=== PATIENT | female | born 1960 | race Caucasian/White ===

== ENCOUNTER 2016-06-19 09:00 | Inpatient (IN) ==
[2016-06-19] MEDS ORDERED: DUONEB (A & A) INH ONE (09:05)
[2016-06-19 09:17] LABS: BE 3.9 mmoll (-3.0-3.0); BLOOD TYPE ARTERIAL; DRAW SITE R RADIAL; METHB 1.2 % (0.0-1.5); O2(CT) 18.9 mL/dL (15.0-23.0); PCO2(98.6) 38 mmHg (35-45); PO2(98.6) 51 mmHg (60-100); SAMPLE BLOOD; SAO2 91.8 % (95.0-100.0); THB 15.5 g/dL (11.5-17.4); pH(98.6) 7.47 (7.35-7.45)
[2016-06-19 09:25] LABS: ALLEN TEST YES; MODALITY ROOM AIR
--- NOTE | 2016-06-19 09:50 | PROVIDER DOCUMENTATION ---
HPI-Respiratory General - General Chief Complaint: Shortness of Breath Stated Complaint: SOB Time Seen by Provider: 06/19/16 09:45 Source: patient Allergies/Adverse Reactions: Patient Allergies Allergy/AdvReac Type Severity Reaction Status Date / Time Penicillins Allergy Unknown Verified 04/15/15 12:21 Home Medications: Home Medication List Medication Instructions Recorded Confirmed Last Taken Type Albuterol Sulfate [Proventil Hfa] 6.7 gm IH Q4H PRN #1 hfa.aer.ad 03/28/1404/1503/26/15 07:00 Rx Bumetanide [Bumex] 1 mg PO BID 03/28/14 04/15/15 03/26/15 07:00 History Oxycodone HCl [Roxicodone] 30 mg Q6HR 03/28/14 04/15/15 03/26/15 07:00 History Pregabalin [Lyrica] 75 mg BID 03/28/14 04/15/15 03/26/15 07:00 History Tapentadol HCl [Nucynta] 100 mg BID 03/28/14 04/15/15 03/26/15 07:00 History Tizanidine [Zanaflex] 8 mg PO TID 03/28/14 04/15/15 03/26/15 07:00 History Albuterol Sulfate [Albuterol 8.5 gm IH Q4-6H PRN PRN #1 03/26/15 04/15/15 Unknown Rx Sulfate Hfa] hfa.aer.ad Alprazolam [Xanax] 1 mg PO TID 03/26/15 04/15/15 03/26/15 07:00 History Benzonatate [Tessalon] 100 mg PO TID PRN PRN #20 capsule 03/26/15 04/15/15 Unknown Rx Albuterol Sulfate Inhaler 2 puff INH Q6H PRN PRN #1 inhaler 04/15/15 Unknown Rx [Ventolin Hfa] Guaifenesin/Codeine Phosphate 10 ml PO Q4HR PRN #120 liquid 04/15/15 Unknown Rx [Cheratussin AC Syrup] Levofloxacin [Levaquin] 750 mg PO DAILY #7 tablet 04/15/15 Unknown Rx Prednisone 20 mg PO BID #12 tablet 04/15/15 Unknown Rx Albuterol Sulfate Inhaler 2 puff INH Q6H PRN PRN #1 inhaler 04/02/16 Unknown Rx [Ventolin Hfa] Azithromycin [Zithromax Z-Patrice] 250 mg PO DIRECTED #1 pkg 04/02/16 Unknown Rx Benzonatate [Tessalon] 100 mg PO TID #30 capsule 04/02/16 Unknown Rx Doxycycline Monohydrate 100 mg PO BID #20 tablet 04/02/16 Unknown Rx Prednisone 20 mg PO BID #10 tablet 04/02/16 Unknown Rx - History of Present Illness-Resp Nature of Presenting Problem: pt is a 55 y/o f that presents with 24 hours of shortness of breath and cough. denies fever/chills,chest pain, or swelling. history of copd and still smokes Quality of Pain: reports: tightness Severity in ED: reports: moderate Onset/Duration: reports: gradual, 24 hours ago Timing: reports: still present, constant Context: reports: multiple patients with similar complaints. denies: recent URI Cough Quality/Degree: reports: moderate, dry cough Episode Frequency: frequent episodes Current Respiratory Medication Therapy: Initiated see nurses note Modifying Factors: worse with: exertion, coughing Associated Symptoms: reports: cough, shortness of breath, short of breath, wheezing. denies: fever/chills, flu-like symptoms, nasal congestion, nasal drainage Similar Symptoms Previously?: Yes Recently seen or treated by another doctor?: No Review of Systems - Adult - REVIEW OF SYSTEMS - ADULT Constitutional: denies: chills, fever Eyes: reports: no symptoms reported Ears, Nose, Mouth & Throat: denies: ear pain, sinus problem, throat pain Cardiovascular: denies: chest pain, palpitations Respiratory: reports: cough, shortness of breath, wheezing Gastrointestinal: reports: no symptoms reported Genitourinary: reports: no symptoms reported Musculoskeletal: reports: no symptoms reported Integumentary: reports: no symptoms reported Neurological: reports: no symptoms reported Psychiatric: reports: no symptoms reported Endocrine: reports: no symptoms reported Hematologic/Lymphatic: reports: no symptoms reported Allergic/Immunologic: reports: no symptoms reported All Other Systems: Reviewed and Negative Past History - Adult - PAST MEDICAL HISTORY-ADULT Review of Records: reports: Old Records Reviewed, Nursing Assessment Review, Medications Reviewed Cardiovascular: reports: HTN, hyperlipidemia Respiratory: reports: COPD Musculoskeletal: reports: chronic pain (back) - PRIOR SURGERIES/PROCEDURES Surgical/Procedure History: reports: tonsillectomy - IMMUNIZATION STATUS Childhood Immunizations: See Nurse Assessment Flu Vaccine: See Nurse Assessment - FAMILY HISTORY Family History: reviewed, not pertinent - SOCIAL HISTORY Smoking: cigarettes, greater than 1 pack/day Living Situation: family Physical Exam-General - PHYSICAL EXAM-ADULT Initial Vital Signs Reviewed: Yes - CONSTITUTIONAL General Appearance: alert, mild distress, moderate distress, obese - EYES Eyes: PERRL/EOMI, pink conjunctivae - HEAD, EARS, NOSE, MOUTH & THROAT HENMT: normocephalic/atraumatic, moist mucous membranes, normal ENT inspection - NECK Neck: full range of motion, normal inspection - RESPIRATORY Respiratory: no respiratory distress, no accessory muscle use, wheezing - CARDIOVASCULAR Cardiovascular: regular rate, rhythm, no edema, no murmur - GASTROINTESTINAL (ABDOMEN) Abdominal Exam: normal bowel sounds, non tender, soft - MUSCULOSKELETAL Extremity: normal range of motion, normal inspection, no pedal edema, no calf tenderness, normal capillary refill - SKIN Integumentary: normal color, warm/dry - NEUROLOGIC Neurologic: grossly normal, no motor/sensory deficits - PSYCHIATRIC Psych/Mental Status: normal mood/affect, normal thought content, normal thought process, oriented x 3 Progress - PLAN OF CARE/RESULTS Progress/Plan/Lab Results: Vital Signs - 8 hr 06/19/16 09:03 06/19/16 09:05 06/19/16 10:30 Temperature 98.3 F 97.9 F Pulse Rate 91 H 97 H 87 Respiratory Rate 26 H 16 26 H Blood Pressure 158/86 160/70 O2 Sat by Pulse Oximetry 92 L 97 87 L Laboratory Results - last 24 hr 06/19/16 06/19/16 06/19/16 09:00 09:47 09:47 WBC 5.91 RBC 4.80 Hgb 14.3 Hct 43.4 MCV 90.4 MCH 29.8 MCHC 32.9 L RDW Std Deviation 14.3 Plt Count 143 MPV 10.3 Immature Gran % (Auto) 0.2 Neut % (Auto) 75.6 H Lymph % (Auto) 15.7 L [place] % (Auto) 8.1 Eos % (Auto) 0.2 Baso % (Auto) 0.2 Immature Gran # (Auto) 0.01 Neut # (Auto) 4.47 Lymph # (Auto) 0.93 L [place] # (Auto) 0.48 Eos # (Auto) 0.01 Baso # (Auto) 0.01 Specimen Type ARTERIAL Sample Site R RADIAL pH 7.47 H pCO2 38 pO2 51 L HCO3 27.6 H Base Excess 3.9 H Oxyhemoglobin 87.0 L* ABG O2 Sat (Calculated) 18.9 ABG O2 Saturation 91.8 L ABG Carboxyhemoglobin 4.00 H ABG Methemoglobin 1.2 Mario Test YES A-a O2 Difference 51.0 Total Hemoglobin 15.5 Lactate 1.10 Blood Gas Modality ROOM AIR FiO2 % 21.0 Sodium 143 Potassium 3.0 L Chloride 103 Carbon Dioxide 24 L Anion Gap 16 BUN 6 L Creatinine 0.5 Estimated GFR/1.73 m2 > 60 BUN/Creatinine Ratio 12 Glucose 136 H Calculated Osmolality 285 Calcium 8.9 Total Bilirubin 0.40 AST 15 ALT 12 Alkaline Phosphatase 101 Total Protein 6.7 Albumin 3.7 Globulin 3.0 Albumin/Globulin Ratio 1.0 Orders Category Date Time Status Saline Loc DIRECTED Care 06/19/16 09:05 Active CHEST-2 VIEWS [RAD] Stat Exams 06/19/16 09:05 Taken ABG [RESP] Routine Lab 06/19/16 09:00 Completed BLOOD CULTURE [BLDCUL] Stat Lab 06/19/16 09:32 Ordered CBC WITH DIFF [HEME] Stat Lab 06/19/16 09:47 Completed CMP [COMPREHENSIVE METABOLIC PANEL] [CHEM] Stat Lab 06/19/16 09:47 Completed Albuterol 2.5MG/Ipratrop 0.5MG [Duoneb (A & A)] Med 06/19/16 09:05 Discontinued 3 ml INH NOW ONE Aerosol Treatments Routine Oth 06/19/16 09:05 Completed Aerosol Treatments Stat Oth 06/19/16 09:05 Completed Aerosol Treatments Stat Oth 06/19/16 09:05 Completed Pulse Oximetry Stat Oth 06/19/16 09:05 Completed Result Diagrams: 06/19/16 09:47 06/19/16 09:47 - XRAY 1 XRAY Study: Chest Impression: Abnormal XRAY Interpretation: stable fibrosis, nad - CONSULTS/PCP/HOSPITALIST Notification #1 *Consult/PCP/Hospitalist*: Time Discussed: 10:35 Consult Disposition: Admit Departure - Departure Time of Disposition Decision: 10:43 DIAGNOSIS: COPD with exacerbation, Shortness of breath Disposition: ADMITTED INPATIENT 09 Certified Medical Emergency: Emergent Condition: Stable Referrals and Follow-Ups: Jai Cee MD [Primary Care Provider] -
[2016-06-19 09:59] LABS: MANUAL DIFF NEEDED? NO
[2016-06-19 10:00] LABS: BASO% 0.2 % (0.0-0.8); EOS# 0.01 X1000 (0.0-0.7); EOS% 0.2 % (0.0-10.0); HEMATOCRIT 43.4 % (37.0-47.0); HEMOGLOBIN 14.3 g/dL (12.0-16.0); IMM GRAN# 0.01 X1000 (0.0-0.04); IMM GRAN% 0.2 % (0.0-0.5); LYMPH# 0.93 X1000 (1.2-3.4); LYMPH% 15.7 % (20.5-51.1); MCH 29.8 PG (27-31); MCHC 32.9 g/dL (33-37); MCV 90.4 FL (81-99); MONO# 0.48 X1000 (0.11-0.59); MONO% 8.1 % (1.7-9.3); MPV 10.3 FL (7.4-10.4); NEUT% 75.6 % (42.2-75.2); PLT 143 X1000 (130-400)
[2016-06-19 10:20] LABS: AGAP 16; ALBUMIN 3.7 g/dL (3.5-5.0); ALKALINE PHOSPHATASE 101 U/L (32-104); BUN 6 mg/dL (8-22); CALCIUM 8.9 mg/dL (8.8-10.2); CHLORIDE 103 mmol/L (98-107); COSMO 285; GOT 15 U/L (10-30); GPT 12 U/L (10-36); SODIUM 143 mmol/L (136-145); TCO2 24 mmol/L (25-35); TOTAL PROTEIN 6.7 g/dL (6.3-8.3)
--- NOTE | 2016-06-19 10:48 | Diag Imaging Result Document ---
PROCEDURE NAME: CHEST-2 VIEWS - 06/19/2016 CHEST, TWO VIEWS: INDICATION: Shortness of breath. COMPARISON: 04/02/2016, 04/15/2015. FINDINGS: The heart size is within normal limits and stable. There is stable bilateral interstitial infiltrate, consistent with fibrosis. No acute infiltrate, effusion, or pneumothorax appreciated. IMPRESSION: Stable parenchymal fibrosis.
[2016-06-19] MEDS ORDERED: LEVAQUIN 750 MG/D5W 750 MG/150 ML IVPB IV ONE (10:56)
[2016-06-19] MEDS ORDERED: DUONEB (A & A) INH SCH (14:38)
[2016-06-19] MEDS ORDERED: DUONEB (A & A) INH PRN (14:38)
[2016-06-19] MEDS ORDERED: ZOFRAN IV PRN (14:38)
[2016-06-19] MEDS: DUONEB (A & A) INH SCH ×3 (14:53→22:56)
[2016-06-19] MEDS ORDERED: KLOR-CON PO ONE (14:59)
--- NOTE | 2016-06-19 15:21 | HISTORY AND PHYSICAL ---
PRIMARY CARE PHYSICIAN: Dr. Jai Vance. CHIEF COMPLAINT: Shortness of breath. HISTORY OF PRESENT ILLNESS: This is a 55-year-old female, who presented to the emergency room complaining of increasing wheezing with chest congestion over the last 2 days. She denies any fever, chest pain, palpitations. She does note that her grandson lives with her and he has had upper respiratory infection over the past week. Of note, she does continue to smoke half a pack a day. She does report an increase in shortness of breath with movement, with a slight increase on sitting still. She reports a dry cough. Chest x-ray in the emergency room revealed no infiltrate, effusion or pneumothorax. On arrival to the ER her oxygen saturation did dip to 87 on 3 L nasal cannula. She was given a DuoNeb treatment of course and had supplemental oxygen. She is being admitted for further evaluation and treatment. PAST MEDICAL HISTORY: 1. Chronic obstructive pulmonary disease with chronic bronchitis. 2. Hypertension. 3. Chronic back pain. 4. Hyperlipidemia. PAST SURGICAL HISTORY: Tonsillectomy, carpal tunnel bilateral, pyloric stenosis repair. SOCIAL HISTORY: She does live with family members. She smokes half a pack a day. She denies alcohol or illicit drug use. ALLERGIES: Penicillin which has unknown reaction. HOME MEDICATIONS: 1. Motrin 800 mg twice a day. 2. Xanax 1 mg t.i.d. p.r.n. 3. Bumex 1 mg b.i.d. p.r.n. 4. Roxicodone 30 t.i.d. 5. Lyrica 75 mg b.i.d. 6. Zanaflex 8 mg t.i.d. REVIEW OF SYSTEMS: A 14 point review of systems is discussed with patient with pertinent positives stated in the HPI. She denied chest pain, palpitations, syncope, dizziness, productive cough, PND, orthopnea, nausea, vomiting, diarrhea, constipation, black or bloody vomitus, black or bloody stools, hematuria, dysuria, frequency, urgency. PHYSICAL EXAMINATION: GENERAL: This is a 55-year-old female, who is sitting up in the bed with no distress. VITAL SIGNS: Blood pressure is 178/67 with a heart rate of 93, respirations are 21 with a temp of 98.2 degrees and oxygen saturation of 96% to 97% on 4 L nasal cannula. HEENT: Head is normocephalic, atraumatic. Pupils equal, round, react to light. EOM's are intact. Sclerae are anicteric. Mucous membranes are moist. NECK: Supple. Trachea midline. CARDIOVASCULAR: Regular rate and rhythm. S1, S2 appreciated. PULMONARY: Breath sounds with wheezing scattered throughout. Prolonged expiration. No increased work of breathing noted. She does have symmetrical chest rise and fall. GASTROINTESTINAL: Abdomen is soft, nontender, nondistended with bowel sounds in all 4 quadrants. BACK: No CVAT. No spine tenderness. MUSCULOSKELETAL: Good range of motion of joints. NEUROLOGIC: She is alert and oriented x3. EXTREMITIES: No clubbing, cyanosis, or edema. Calves are nontender. Pulses are palpable x4. DIAGNOSTICS: WBC is 5.9 with hemoglobin 14.3, hematocrit 43.4, platelets of 143. Sodium is 143, potassium 3. BUN 6, creatinine 0.5 with a glucose of 136. ABGs: A pH of 7.47 with a PCO2 of 38, PO2 of 51, bicarbonate of 27.6 (this is on room air). Chest x-ray as stated above. ASSESSMENT AND PLAN: 1. Chronic obstructive pulmonary disease, acute on chronic exacerbation. 2. Hypoxemia. 3. Shortness of breath. 4. Hypokalemia. 5. Hypertension. 6. Chronic back pain. 7. Tobacco use and abuse. She will be admitted to the hospital. Placed on telemetry. We will give supplemental oxygen. DuoNebs q. 4 hours and q. 2 p.r.n. Steroids to taper. We will identify her home medications and continue as appropriate. Blood cultures were drawn in the emergency room. We will continue with Levaquin. We will continue to watch for sensitivities and, if needed, antibiotics may be changed appropriately according to these results. We will trend electrolytes and replete as appropriate. Further treatments pending hospital course. Dictated by ASTON Jiménez for Yan Weinstein MD cc: ASTON Jiménez MD
[2016-06-19] MEDS: NS 1,000 ML IV SCH (15:59)
[2016-06-19] MEDS: SOLU-MEDROL IV SCH ×2 (15:59→22:10)
[2016-06-19] MEDS ORDERED: BUMEX PO PRN (19:07)
[2016-06-19] MEDS: MOTRIN PO SCH (20:16)
[2016-06-19] MEDS: LYRICA PO SCH (20:16)
[2016-06-19] MEDS: XANAX PO PRN (20:21)
[2016-06-20] MEDS: XANAX PO PRN ×2 (00:09→04:59)
[2016-06-20] MEDS: DUONEB (A & A) INH SCH ×6 (03:18→22:59)
[2016-06-20] MEDS: NS 1,000 ML IV SCH ×2 (04:56→20:16)
[2016-06-20] MEDS: SOLU-MEDROL IV SCH ×3 (06:10→22:03)
[2016-06-20 06:37] LABS: HEMATOCRIT 44.6 % (37.0-47.0); HEMOGLOBIN 14.5 g/dL (12.0-16.0); MCH 29.5 PG (27-31); MCHC 32.5 g/dL (33-37); MCV 90.7 FL (81-99); MPV 10.6 FL (7.4-10.4); RBC 4.92 XMIL (4.2-5.4)
[2016-06-20 06:57] LABS: AGAP 11; ALKALINE PHOSPHATASE 99 U/L (32-104); BUN 6 mg/dL (8-22); CHLORIDE 101 mmol/L (98-107); COSMO 278; GOT 14 U/L (10-30); GPT 12 U/L (10-36); POTASSIUM 3.6 mmol/L (3.5-5.1); SODIUM 138 mmol/L (136-145); TCO2 26 mmol/L (25-35); TOTAL PROTEIN 6.9 g/dL (6.3-8.3)
[2016-06-20] MEDS: MOTRIN PO SCH ×2 (08:04→20:18)
[2016-06-20] MEDS: LYRICA PO SCH ×2 (08:04→20:18)
[2016-06-20] MEDS: OXY IR PO SCH ×3 (08:05→20:18)
[2016-06-20] MEDS: ZANAFLEX PO SCH ×3 (08:05→16:33)
[2016-06-20] MEDS ORDERED: TORADOL IV ONE (11:14)
[2016-06-20] MEDS ORDERED: TYLENOL PO PRN (11:14)
[2016-06-20] MEDS: LEVAQUIN 750 MG/D5W 750 MG/150 ML IVPB IV SCH (12:47)
[2016-06-20] MEDS: PRINIVIL PO SCH (12:48)
--- NOTE | 2016-06-20 13:19 | PROGRESS NOTE ---
DATE: 06/20/2016 SUBJECTIVE: The patient noted she did not sleep well last night. She had lots of cough, congestion, shortness of breath. She is still wheezing, still having shortness of breath with any type of activity. Denies any chest pain or palpitation, denies any GI or issues. OBJECTIVE: Vital signs: Temp 97, pulse 95, respiratory rate 18, BP 183/68. General: The patient is a well-developed female who is currently in no real respiratory distress. She is awake, alert. She is pleasant to talk with. HEENT: Normocephalic, atraumatic, PERRL. Neck: Supple. CV: Regular rate. Chest: . Decreased breath sounds. Moderate harsh wheezing bilaterally. Equal breath sounds bilaterally. Abdomen: Soft. Extremities: Moves all extremities. Neurological: No changes. ASSESSMENT: 1. Hypertension. Will add lisinopril. 2. Chronic obstructive pulmonary disease with moderate exacerbation. Will not actually wean her steroids today, as she is still getting 65 IV q.8 h. 3. Will give her one dose of IV Toradol for her joint aches and pains and then will continue Tylenol and ibuprofen as needed. The patient apparently takes Roxicodone 30 mg three times a day, but she notes that this is for her joint aches and pains and not for her headaches. 4. Hypokalemia, improved. 5 Hypoxemia, improved. cc: Yan Weinstein MD
[2016-06-21] MEDS: DUONEB (A & A) INH SCH ×6 (03:39→23:24)
[2016-06-21] MEDS: SOLU-MEDROL IV SCH ×2 (06:25→18:58)
[2016-06-21] MEDS: MOTRIN PO SCH ×2 (08:12→21:42)
[2016-06-21] MEDS: LYRICA PO SCH ×2 (08:12→21:42)
[2016-06-21] MEDS: PRINIVIL PO SCH (08:12)
[2016-06-21] MEDS: ZANAFLEX PO SCH ×3 (08:13→18:58)
[2016-06-21] MEDS: OXY IR PO SCH ×3 (08:13→21:43)
[2016-06-21] MEDS: NS 1,000 ML IV SCH (08:16)
[2016-06-21] MEDS: LEVAQUIN 750 MG/D5W 750 MG/150 ML IVPB IV SCH (10:35)
--- NOTE | 2016-06-21 12:22 | PROGRESS NOTE ---
DATE: 06/21/2016 SUBJECTIVE: The patient notes she is feeling tremendously better this morning. She actually slept last night. States that her cough, congestion, and shortness of breath have also improved. OBJECTIVE: Vital signs: Temperature 98, pulse 97, respiratory rate 18, BP 124/51, saturating 97% on 3 L, although the chart clearly does not actually state that. It shows 97% on a non- rebreather, 97% on 8 L per nasal cannula. Upon my entering the room her O2 saturation is clearly 95 to 98% on 3 L; therefore, I decreased her down to 2 L. HEENT: Normocephalic, atraumatic. JELANI. Neck: Supple. CV: Regular rate. Chest: Relatively clear. She has minimal wheezing compared to yesterday's harsh wheezing. She has much better improvement on her air movement bilaterally and equal. Abdomen: Soft. Extremities: Moves all extremities. Neurologic: No changes. Skin: Warm and dry. No rashes. LABORATORIES: CBC and CMP essentially normal. ASSESSMENT: 1. Chronic obstructive pulmonary disease exacerbation. 2. Hypoxemia. 3. Hypokalemia, resolved. 4. Hypertension, stable. 5. Chronic back pain. 6. Chronic tobacco abuse. PLAN: We will decrease her Solu-Medrol to 40 IV twice a day today. Hopefully discharge home in the a.m. We will continue to follow. We will change her over to p.o. Levaquin. We will stop her telemetry. Patient is aware and agrees. We will also saline lock her. Again, discussed with patient oxycodone, Lyrica, Zanaflex, cigarettes, Xanax all decrease her respiratory drive and all could lead to sudden respiratory failure and . Discussed with her that she needs to wean these down. cc: Yan Weinstein MD
[2016-06-22] MEDS: DUONEB (A & A) INH SCH ×3 (03:39→11:55)
[2016-06-22] MEDS: SOLU-MEDROL IV SCH (05:04)
[2016-06-22] MEDS: XANAX PO PRN (05:10)
[2016-06-22 07:18] VITALS: BP 152/68
[2016-06-22] MEDS ORDERED: LEVAQUIN PO SCH (09:00)
[2016-06-22] MEDS: OXY IR PO SCH (09:21)
[2016-06-22] MEDS: LYRICA PO SCH (09:22)
[2016-06-22] MEDS: MOTRIN PO SCH (09:22)
[2016-06-22] MEDS: ZANAFLEX PO SCH ×2 (09:22→14:02)
[2016-06-22] MEDS: PRINIVIL PO SCH (09:22)
--- NOTE | 2016-06-23 06:36 | DISCHARGE SUMMARY ---
ADMISSION DATE: 06/19/2016 DISCHARGE DATE: 06/22/2016 PRIMARY CARE PHYSICIAN: Dr. Jai Cee ADMISSION DIAGNOSES: 1. Chronic obstructive pulmonary disease, [id number] exacerbation. 2. Hypoxemia. 3. Shortness of breath. 4. Hypokalemia. 5. Hypertension. 6. Chronic back pain. 7. Tobacco use and abuse. DISCHARGE DIAGNOSES: 1. [id number] obstructive pulmonary disease exacerbation. 2. Hypoxemia, resolved. 3. Shortness of breath, improved. 4. Hypokalemia, resolved. 5. Hypertension. 6. Chronic back pain. 7. Tobacco use and abuse. SUMMARY OF FINDINGS: This is a 55-year-old female who presented to the emergency room with complaints of increased wheezing with chest congestion for 2 days that progressively worsened. She states that her grandson does live with her and that he had an upper respiratory infection over the past week. She smokes half a pack of cigarettes a day. She has had increased shortness of breath with movement and slight increase when sitting still. Has a dry cough. Her chest x-ray showed no evidence of an infiltrate, effusion or pneumothorax. On arrival to the ER, her oxygen saturation dipped to 87% on 3 L via nasal cannula. She was given a DuoNeb treatment and supplemental oxygen and was admitted, placed on a steroid taper, IV Levaquin. Blood culture showed no growth. All of her electrolytes have returned to normal limits. She is saturating 94% on 4 L, and it is felt that she can safely be discharged home today. DISCHARGE MEDICATIONS: She will be given a prescription for a nicotine patch 1 transdermally daily, #30 with 2 refills. Lisinopril 10 mg p.o. daily, #30 with 2 refills. Medrol Dosepak, take as directed. Levaquin 500 mg p.o. daily, #7 with no refills. She will continue her other home medications as follows: Xanax 1 mg p.o. t.i.d. p.r.n., Bumex 1 mg p.o. b.i.d. p.r.n., ibuprofen 800 mg p.o. b.i.d., oxycodone 30 mg p.o. t.i.d., Lyrica 75 mg p.o. b.i.d., Zanaflex 8 mg p.o. t.i.d. FOLLOWUP: She will need to follow up with her primary care physician, Dr. Jai Cee, in 1-2 weeks. All discharge instructions have been reviewed with the patient and she verbalizes understanding. TIME SPENT: Thirty-five minute discharge. Dictated by ASTON Kohler for Yan Weinstein MD cc: ASTON Kohler MD Edwin K. Matthews, MD
== END 2016-06-22 13:55 | disposition home or self-care (01) ==
LOC: P.ED 09:00 → P.MEDSURG 11:31
PROVIDERS: ATTEND Family Medicine

== ENCOUNTER 2016-07-15 17:43 | Inpatient (IN) ==
[2016-07-15] MEDS ORDERED: NS 2,000 ML ONE (18:02)
[2016-07-15] MEDS ORDERED: NS 1,000 ML IV ONE ×3 (18:49→18:50)
[2016-07-15] MEDS ORDERED: NEO-SYNEPHRINE 50 MG in NS 250 ML IV SCH (19:00)
--- NOTE | 2016-07-15 19:22 | EKG Report ---
Test Performed on : 07/15/2016 6:24:45 PM Test Reason : hypo Blood Pressure : / mmHG Vent. Rate : 081 BPM Atrial Rate : 081 BPM P-R Int : 194 ms QRS Dur : 090 ms QT Int : 378 ms P-R-T Axes : 069 039 038 degrees QTc Int : 439 ms Normal sinus rhythm. Low voltage QRS Borderline ECG No previous ECGs available Unconfirmed Result
[2016-07-15 19:23] LABS: MANUAL DIFF NEEDED? NO
[2016-07-15 19:25] LABS: BASO% 0.1 % (0.0-0.8); EOS# 0.07 X1000 (0.0-0.7); EOS% 0.4 % (0.0-10.0); HEMATOCRIT 33.3 % (37.0-47.0); HEMOGLOBIN 10.8 g/dL (12.0-16.0); IMM GRAN# 0.04 X1000 (0.0-0.04); IMM GRAN% 0.3 % (0.0-0.5); LYMPH# 1.76 X1000 (1.2-3.4); LYMPH% 11.2 % (20.5-51.1); MCH 30.3 PG (27-31); MCHC 32.4 g/dL (33-37); MCV 93.3 FL (81-99); MONO# 1.04 X1000 (0.11-0.59); MONO% 6.6 % (1.7-9.3); MPV 9.7 FL (7.4-10.4); NEUT% 81.4 % (42.2-75.2); PLT 168 X1000 (130-400); RBC 3.57 XMIL (4.2-5.4)
[2016-07-15 19:53] LABS: ALBUMIN 3.3 g/dL (3.5-5.0); CALCIUM 7.8 mg/dL (8.8-10.2); POTASSIUM 4.4 mmol/L (3.5-5.1); TOTAL BILIRUBIN 0.2 mg/dL (0.20-1.00); TOTAL PROTEIN 6.3 g/dL (6.3-8.3)
[2016-07-15] MEDS ORDERED: VANCOMYCIN 1 GM/NS 1 GM/250 ML IVPB IV ONE (20:12)
[2016-07-15 20:21] LABS: CK INDEX 2.7 (0.0-2.5); CK-MB 4.77 ng/mL (0.0-5.0)
--- NOTE | 2016-07-15 20:46 | PROVIDER DOCUMENTATION ---
This chart was entered by Kat Pedroza Scribe, acting as scribe for Juarez Israel MD. HPI-Syncope/Dizziness - General Chief Complaint: Syncope Stated Complaint: SYNCOPE Time Seen by Provider: 07/15/16 18:05 Source: patient, family Allergies/Adverse Reactions: Patient Allergies Allergy/AdvReac Type Severity Reaction Status Date / Time Penicillins Allergy Unknown Verified 04/15/15 12:21 Home Medications: Home Medication List Medication Instructions Recorded Confirmed Last Taken Type Bumetanide [Bumex] 1 mg PO BID PRN PRN 03/28/14 06/19/16 06/13/16 09:00 History Oxycodone HCl [Roxicodone] 30 mg TID 03/28/14 06/19/16 06/18/16 21:00 History Pregabalin [Lyrica] 75 mg BID 03/28/14 06/19/16 06/19/16 09:00 History Tizanidine [Zanaflex] 8 mg PO TID 03/28/14 06/19/16 06/19/16 09:00 History Alprazolam [Xanax] 1 mg PO TID PRN PRN 03/26/15 06/19/16 06/10/16 09:00 History Ibuprofen [Motrin] 800 mg PO BID 06/19/16 06/19/16 06/18/16 21:00 History LISINOpril [Prinivil] 10 mg PO DAILY #30 tablet 06/22/16 Unknown Rx Levofloxacin [Levaquin] 500 mg PO DAILY #7 tablet 06/22/16 Unknown Rx Methylprednisolone [Medrol Dosepak] 4 mg PO DIRECTED #1 package 06/22/16 Unknown Rx Nicotine [Nicoderm Cq] 1 each TD DAILY #30 patch.td24 06/22/16 Unknown Rx Clindamycin [Cleocin] 150 mg PO Q6HR #30 capsule 07/14/16 Unknown Rx Ibuprofen [Motrin] 800 mg PO Q8H PRN PRN #20 tablet 07/14/16 Unknown Rx - History of Present Illness-Syncope/Dizzy Nature of Presenting Problem: 56 year old F presents to the ED with a cc of weakness, diaphoresis, syncope, and dizziness with an onset of this morning. Daughter states that pt was seen yesterday for an abscess under right arm. I&D was preformed and pt was prescribed Clindamycin and Motrin. Daughter states that pt has had x2 syncopal episodes today. Pt is to follow up with a surgeon tomorrow regarding the abscess. On arrival, pts blood pressure was 98/33 and has since been slowly declining. Prior Episodes: reports: multiple episodes today Onset/Duration: reports: this morning Timing: reports: still present Position/Activity at time of episode: reports: standing Symptoms prior to episode: reports: lightheaded Current Symptoms: reports: weakness Recently Seen Here or By Another Healthcare Provider: No Review of Systems - Adult - REVIEW OF SYSTEMS - ADULT Constitutional: denies: chills, fever Eyes: reports: no symptoms reported Ears, Nose, Mouth & Throat: reports: no symptoms reported Cardiovascular: reports: no symptoms reported Respiratory: reports: no symptoms reported Gastrointestinal: denies: abdominal pain, nausea, vomiting Genitourinary: reports: no symptoms reported Musculoskeletal: reports: muscle weakness. denies: muscle aches Integumentary: denies: skin sores/ulcer, skin thickening Neurological: reports: dizziness/vertigo, syncope. denies: slurred speech Psychiatric: reports: no symptoms reported Endocrine: reports: no symptoms reported Hematologic/Lymphatic: reports: no symptoms reported Allergic/Immunologic: reports: no symptoms reported All Other Systems: Reviewed and Negative Past History - Adult - PAST MEDICAL HISTORY-ADULT Review of Records: reports: Nursing Assessment Review, Medications Reviewed Cardiovascular: reports: HTN, hyperlipidemia Respiratory: reports: COPD Musculoskeletal: reports: chronic pain (back) - PRIOR SURGERIES/PROCEDURES Surgical/Procedure History: reports: tonsillectomy - IMMUNIZATION STATUS Childhood Immunizations: See Nurse Assessment Flu Vaccine: See Nurse Assessment - FAMILY HISTORY Family History: reviewed, not pertinent - SOCIAL HISTORY Smoking: cigarettes Provider spent 3-5 mins advising pt. on dangers of tobacco.: Discussed manners to quit use, and f/u contacts for add'l counseling. Substance Use: none/never Alcohol Use Frequency: never Physical Exam-General - PHYSICAL EXAM-ADULT Initial Vital Signs Reviewed: Yes - CONSTITUTIONAL General Appearance: alert, no apparent distress - RESPIRATORY Respiratory: chest non-tender, lungs clear, normal breath sounds - CARDIOVASCULAR Cardiovascular: normal peripheral pulses, regular rate, rhythm, no edema - GASTROINTESTINAL (ABDOMEN) Abdominal Exam: non tender, soft - MUSCULOSKELETAL Extremity: normal inspection, no pedal edema - SKIN Integumentary: normal color, normal turgor, warm/dry - PSYCHIATRIC Psych/Mental Status: normal mood/affect, normal thought content, normal thought process, oriented x 3 Progress - PLAN OF CARE/RESULTS Progress/Plan/Lab Results: Vital Signs - 8 hr 07/15/16 17:49 Temperature 95.6 F L Pulse Rate 84 Respiratory Rate 20 Blood Pressure 98/33 O2 Sat by Pulse Oximetry 89 L Laboratory Results - last 24 hr 07/15/16 07/15/16 07/15/16 18:00 19:15 19:15 WBC 15.65 H RBC 3.57 L Hgb 10.8 L Hct 33.3 L MCV 93.3 MCH 30.3 MCHC 32.4 L RDW Std Deviation 14.9 H Plt Count 168 MPV 9.7 Immature Gran % (Auto) 0.3 Neut % (Auto) 81.4 H Lymph % (Auto) 11.2 L [place] % (Auto) 6.6 Eos % (Auto) 0.4 Baso % (Auto) 0.1 Immature Gran # (Auto) 0.04 Neut # (Auto) 12.72 H Lymph # (Auto) 1.76 [place] # (Auto) 1.04 H Eos # (Auto) 0.07 Baso # (Auto) 0.02 Sodium Potassium Chloride Carbon Dioxide Anion Gap BUN Creatinine Estimated GFR/1.73 m2 BUN/Creatinine Ratio Glucose POC Glucose 145 H Calculated Osmolality Calcium Total Bilirubin AST ALT Alkaline Phosphatase Creatine Kinase Creatine Kinase Index CK-MB (CK-2) Troponin T Total Protein Albumin Globulin Albumin/Globulin Ratio Plasma Lactate 0.8 07/15/16 07/15/16 07/15/16 19:15 19:15 19:15 WBC RBC Hgb Hct MCV MCH MCHC RDW Std Deviation Plt Count MPV Immature Gran % (Auto) Neut % (Auto) Lymph % (Auto) [place] % (Auto) Eos % (Auto) Baso % (Auto) Immature Gran # (Auto) Neut # (Auto) Lymph # (Auto) [place] # (Auto) Eos # (Auto) Baso # (Auto) Sodium 132 L Potassium 4.4 Chloride 98 Carbon Dioxide 21 L Anion Gap 13 BUN 27 H Creatinine 1.7 H Estimated GFR/1.73 m2 31 BUN/Creatinine Ratio 16 Glucose 125 H POC Glucose Calculated Osmolality 271 Calcium 7.8 L Total Bilirubin 0.20 AST 13 ALT 10 Alkaline Phosphatase 95 Creatine Kinase 177 H Creatine Kinase Index 2.7 H CK-MB (CK-2) 4.77 Troponin T < 0.010 Total Protein 6.3 Albumin 3.3 L Globulin 3.0 Albumin/Globulin Ratio 1.0 Plasma Lactate Orders Category Date Time Status Admit - [facility] Routine AdmDCTranf 07/15/16 20:12 Ordered Activity - Strict Bedrest ORDERED Care 07/15/16 20:12 Active Vital Signs Order Q 4-HR ASSESS Care 07/15/16 20:12 Active Heart Healthy Diet Diet 07/15/16 20:14 Active CHEST-PORTABLE [RAD] Stat Exams 07/15/16 18:44 Taken BLOOD CULTURE [BLDCUL] Stat Lab 07/15/16 18:44 Ordered CBC WITH DIFF [HEME] Stat Lab 07/15/16 19:15 Completed CK PROFILE [SP CHEM] Stat Lab 07/15/16 19:15 Completed COMPREHENSIVE METABOLIC PANEL [CHEM] Stat Lab 07/15/16 19:15 Completed LACTATE, PLASMA [CHEM] Stat Lab 07/15/16 19:15 Completed TROPONIN T Stat Lab 07/15/16 19:15 Completed 0.9% Sodium Chloride Inj [Ns] 1,000 ml Med 07/15/16 18:02 Discontinued .ROUTE As Directed 0.9% Sodium Chloride Inj [Ns] 1,000 ml Med 07/15/16 18:50 Active IV 150 mls/hr 0.9% Sodium Chloride Inj [Ns] 1,000 ml Med 07/15/16 20:12 Active IV 150 mls/hr 0.9% Sodium Chloride Inj [Ns] 1,000 ml Med 07/15/16 18:49 Discontinued IV 999 mls/hr 0.9% Sodium Chloride Inj [Ns] 1,000 ml Med 07/15/16 18:49 Discontinued IV 999 mls/hr 0.9% Sodium Chloride Inj [Ns] 250 ml Med 07/15/16 19:00 Active Phenylephrine [Morgan-Synephrine] 50 mg IV As Directed Ondansetron [Zofran] Med 07/15/16 20:12 Active 4 mg IV Q4H PRN PRN Vancomycin 1 gm/Ns Med 07/15/16 20:12 Active 1 gm in 250 ml IV NOW Oxygen Device Routine Oth 07/15/16 20:13 Active Telemetry [OM.EQ] Routine Oth 07/15/16 20:12 Active EKG [EKG] Stat Ther 07/15/16 18:44 Draft Transfer/Admit Order [TRANSFER] Routine Transfer 07/15/16 20:16 Ordered Result Diagrams: 07/15/16 19:15 07/15/16 19:15 - EKG 1 Time of EKG reading by physician:: 18:24 EKG Read and Signed by:: Juarez Israel EKG Interpretation (*Must complete 3 of following elements*): Abnormal Rate: 81 Rhythm: NSR QRS: poor R wave progression, other (low voltage QRS) - XRAY 1 XRAY Study: Chest Impression: Normal - CONSULTS/PCP/HOSPITALIST Notification #1 *Consult/PCP/Hospitalist*: Dr. Weinstein (hospitalist) Time Discussed: 20:30 Consult Disposition: Will see in ED, Admit Departure - Departure Time of Disposition Decision: 20:45 DIAGNOSIS: Sepsis Qualifiers: Sepsis type: sepsis due to unspecified organism Qualified Code(s): A41.9 - Sepsis, unspecified organism Disposition: ADMITTED INPATIENT 09 Certified Medical Emergency: Emergent Condition: Stable Referrals and Follow-Ups: Jai Cee MD [Primary Care Provider] - - Critical Care Note This patient required my direct & personal management of CC.: No This chart was documented by the indicated scribe, (Kat Pedroza, Zeynep) and accurately reflects the services I performed and decisions made by me, Juarez Israel MD, as attested by the provider's signature.
[2016-07-15] MEDS ORDERED: TYLENOL PO PRN (21:01)
[2016-07-15] MEDS ORDERED: ZOFRAN IV PRN (21:01)
[2016-07-15] MEDS: NS 1,000 ML IV ONE (22:05)
[2016-07-15] MEDS: NORCO-7.5 PO PRN (22:15)
[2016-07-15] MEDS: ROCEPHIN 1 GM/NS 1 GM/50 ML IVPB IV SCH (23:17)
[2016-07-16] MEDS: NS 1,000 ML IV ONE (02:41)
[2016-07-16] MEDS: NORCO-7.5 PO PRN ×3 (03:45→20:57)
[2016-07-16] MEDS: PRILOSEC PO SCH (06:19)
--- NOTE | 2016-07-16 06:50 | Diag Imaging Result Document ---
PROCEDURE NAME: CHEST-PORTABLE - 07/15/2016 PORTABLE CHEST: COMPARISON: Compared to 06/19/2016 . FINDINGS: The lungs are well expanded. The heart is not enlarged. The vessels are not distended. No pneumonia. No pleural effusions identified. IMPRESSION: Negative chest.
[2016-07-16 07:04] LABS: HEMATOCRIT 32.5 % (37.0-47.0); HEMOGLOBIN 10.3 g/dL (12.0-16.0); MCHC 31.7 g/dL (33-37); MCV 94.8 FL (81-99); MPV 9.8 FL (7.4-10.4); RBC 3.43 XMIL (4.2-5.4)
[2016-07-16 07:35] LABS: AGAP 10; ALKALINE PHOSPHATASE 101 U/L (32-104); BUN 18 mg/dL (8-22); CHLORIDE 104 mmol/L (98-107); COSMO 276; GOT 11 U/L (10-30); GPT 10 U/L (10-36); MAGNESIUM 1.8 mg/dL (1.5-2.7); SODIUM 137 mmol/L (136-145); TCO2 23 mmol/L (25-35); TOTAL PROTEIN 6.3 g/dL (6.3-8.3)
[2016-07-16] MEDS ORDERED: ZOFRAN IV PRN (08:24)
[2016-07-16] MEDS ORDERED: TYLENOL PO PRN (08:24)
[2016-07-16] MEDS ORDERED: VANCOMYCIN IV PER PHARMACY MISC SCH (08:30)
--- NOTE | 2016-07-16 08:44 | PROGRESS NOTE ---
DATE: 07/16/2016 SUBJECTIVE: The patient notes she is feeling a little bit better this morning. Her right axilla and right arm still hurts although the pain is much more tolerable than last night. PHYSICAL EXAMINATION: Vital Signs: Temperature 98, pulse 64, respiratory 22-28, BP 94/49 to 102/49, and saturation 100% on 2 L. General: Patient is awake and alert currently in no real respiratory distress. She is pleasant to talk with. Speech is regular. Memory intact. Neck: Supple. CV: Regular rate. Chest: Positive wheezing but good air movement bilaterally and equal. Abdomen: Soft, obese. Extremities: Moves all extremities. Neurologic: No changes. Skin: She is noted to have a recent wound on her right axilla secondary to I and D on 07/14 of an abscess. She is having surrounding erythema that is extending beyond the axilla. This has been marked to follow progression. ASSESSMENT: 1. Sepsis secondary to cellulitis. 2. Cellulitis with abscess, right axilla likely methicillin-resistant Staph. We will treat as such. 3. Hypotension, blood pressure is improving. 4. Leukocytosis stable. 5. Obesity. 6. Chronic obstructive pulmonary disease with mild exacerbation. Stable. PLAN: We will continue patient on current antibiotics Rocephin and vancomycin. We will continue pain control. Continue phenylephrine for her blood pressure. We will wean off as tolerated. Again, we discussed with patient the perils of smoking. We will use nebulized treatments as needed. Further orders as needed. cc: Yan Weinstein MD
[2016-07-16] MEDS: VANCOMYCIN 2,000 MG in NS 500 ML IV SCH ×2 (09:55→22:18)
--- NOTE | 2016-07-16 16:08 | HISTORY AND PHYSICAL ---
CHIEF COMPLAINT: Abscess to right arm, syncope. HISTORY OF PRESENT ILLNESS: This is a 56-year-old, morbidly obese female with a history of COPD, chronic back pain, and tobacco abuse. She presented to the emergency room complaining of weakness, diaphoresis, dizziness with 2 syncopal episodes prior to coming to the emergency room. The patient is noted to have an abscess to her right axillary area for which she was evaluated in the emergency room 24 hours prior to this visit for which she underwent I & D was performed for documented return of purulent drainage.drainage She was diagnosed with hydradenitis suppurativa and discharged home with prescriptions for clindamycin and Motrin. Follow up with her primary care physician and Dr. Ishan Lanza in general surgery in 1-2 days. She states that pain increased and her weakness increased after the 2nd syncopal episode. She was brought in today to be evaluated, by her daughter. Blood pressure on arrival to the emergency room is 98/33. Within about 30 minutes it did decline to 49/35. She was given a fluid bolus, started on Levophed, and admitted to ICU for further evaluation and treatment. PAST MEDICAL HISTORY: COPD, hypertension, chronic back pain, tobacco use and abuse. PAST SURGICAL HISTORY: Carpal tunnel bilateral, right foot, tonsillectomy. SOCIAL HISTORY: She smokes 1 pack a day. Denies alcohol or illicit drug use. ALLERGIES: Penicillin. HOME MEDICATIONS: A list will be identified. REVIEW OF SYSTEMS: A 14 point review of systems is discussed with the patient with pertinent positives stated in the HPI with all other systems negative. PHYSICAL EXAMINATION: GENERAL: This is a 56-year-old morbidly obese female, who is lying in the bed, in no distress. VITAL SIGNS: Blood pressure is 115/76 with a heart rate of 81, respirations are 18, temperature is 98.5 degrees oral with oxygen saturations of 95 to 97% on 2 L nasal cannula. HEENT: Head is normocephalic, atraumatic. Pupils equal, round, react to light. EOMs are intact. Sclerae anicteric. Mucous membranes are moist. NECK: Supple. Trachea midline. CARDIOVASCULAR: Regular rate and rhythm. S1, S2 appreciated. PULMONARY: Breath sounds are clear with no increased work of breathing noted. SKIN: Right axillary area is noted to be red, edematous with some purulent drainage. She is very tender to touch during exam. GASTROINTESTINAL: Soft, nontender, nondistended. Bowel sounds in all 4 quadrants. MUSCULOSKELETAL: Good range of motion to joints left arm and lower extremities. Right arm is limited due to pain. NEUROLOGIC: She is alert and oriented x3. Cranial nerves 2 through 12 grossly intact. DIAGNOSTICS: WBC is 15.6, with hemoglobin 10.8, hematocrit 33.3, platelets of 168,000. Sodium is 132, potassium 4.4, BUN 27, creatinine 1.7, with a glucose of 125. Chest x-ray reveals a negative chest. Blood cultures are pending. ASSESSMENT AND PLAN: 1. Sepsis with likely source of abscess right axillary area. Blood cultures are pending. She was given vancomycin in the emergency room. We will continue vancomycin and Rocephin. and consult general surgery. 2. Abscess right arm, axillary area, as above. 3. Hypotension secondary to sepsis. We will continue with IV hydration and Levophed. Hopefully we can wean this down. Of course, we will hold the antihypertensive medications. 4. Leukocytosis. This is secondary to sepsis. 5. Chronic obstructive pulmonary disease. She is not in exacerbation at present. We will identify her home medications and continue. 6. Chronic back pain. Will continue medications as her blood pressure allows. 7. Tobacco use and abuse. We are aware and a nicotine patch will be provided if needed. 8. Chronic kidney disease. This is most likely secondary to sepsis and decreased p.o. intake. We will gently hydrate, renal dose medications as appropriate, and repeat labs in the morning. Further treatments pending hospital course. Dictated by ASTON Jiménez for Yan Weinstein MD cc: ASTON Jiménez MD [facility]
[2016-07-16] MEDS: DUONEB (A & A) INH PRN (16:18)
[2016-07-16] MEDS ORDERED: ATIVAN IV ONE (17:13)
--- NOTE | 2016-07-16 17:37 | CONSULTATION ---
DATE OF CONSULTATION: 07/16/2016 HISTORY OF PRESENT ILLNESS: Ms. Kerry Valle is a 56-year-old, morbidly obese, white female who has developed cellulitis and infection underneath her right axilla. She has undergone a limited drainage I think in the emergency department at [facility]. She is admitted to the ICU at [facility] because of bacteremia or sepsis which has improved on IV antibiotics. She has pain underneath her right axilla and cellulitis. We are asked to evaluate her surgically. PAST MEDICAL HISTORY: She is morbidly obese and diabetic. She has COPD, hypertension. She has had tonsillectomy, facial surgery, carpal tunnel surgery as a child. She had pyloric stenosis. MEDICATIONS: She has multiple home medications which are being identified. ALLERGIES: No known drug allergies. SOCIAL HISTORY: She is a smoker. [place]. PHYSICAL EXAMINATION: General: Ms. Valle is a morbidly obese, white female, who is awake, cooperative, pleasant. She has multiple tattoos involving her skin. She has no jaundice. No oral lesions. No cervical or supraclavicular lymphadenopathy. Heart: Has a regular rate. Lungs: She has expiratory wheezing and a cough consistent with COPD. Abdomen: Soft, nontender without palpable mass. She does have erythema and pain involving her right axilla. Se has a limited incision in the right axilla, which is not draining. Rectal/Vaginal: Exams not performed. Extremities: She does have palpable femoral pulses. Palpable radial pulses bilaterally. Neurological: She has no focal deficit. IMPRESSION: Cellulitis and infection involving the right axilla, status post limited incision. On close palpation, there is no evidence of undrained purulence, but she is tender in this area and indurated. PLAN: We will allow the antibiotics to work. As long as she continues to improve we will try to treat this conservatively. If her cellulitis or induration become more pronounced or there is obvious undrained purulence, she will have to go to the operating room for more involved incision and drainage. That would require transfer to [facility]. cc: Bharati Alvarez MD
[2016-07-16] MEDS: NICODERM PATCH TD SCH (19:18)
[2016-07-16] MEDS: ZOFRAN IV PRN ×2 (19:22→22:27)
[2016-07-16] MEDS: XANAX PO SCH (20:57)
[2016-07-16] MEDS: ROCEPHIN 1 GM/NS 1 GM/50 ML IVPB IV SCH (20:57)
[2016-07-17 06:10] LABS: HEMATOCRIT 32.5 % (37.0-47.0); HEMOGLOBIN 10.2 g/dL (12.0-16.0); MCH 29.8 PG (27-31); MCHC 31.4 g/dL (33-37); MPV 10.4 FL (7.4-10.4); RBC 3.42 XMIL (4.2-5.4)
[2016-07-17] MEDS: PRILOSEC PO SCH (06:29)
[2016-07-17 06:41] LABS: AGAP 10; ALBUMIN 3.2 g/dL (3.5-5.0); ALKALINE PHOSPHATASE 125 U/L (32-104); BUN 9 mg/dL (8-22); CALCIUM 8.7 mg/dL (8.8-10.2); CHLORIDE 103 mmol/L (98-107); COSMO 278; GOT 12 U/L (10-30); GPT 9 U/L (10-36); POTASSIUM 4.5 mmol/L (3.5-5.1); SODIUM 139 mmol/L (136-145); TCO2 26 mmol/L (25-35); TOTAL BILIRUBIN < 0.15 mg/dL (0.20-1.00); TOTAL PROTEIN 6.6 g/dL (6.3-8.3)
[2016-07-17] MEDS: DUONEB (A & A) INH PRN ×2 (07:28→10:59)
[2016-07-17] MEDS: XANAX PO SCH ×2 (09:27→21:08)
[2016-07-17] MEDS: NICODERM PATCH TD SCH (09:27)
[2016-07-17] MEDS: VANCOMYCIN 2,000 MG in NS 500 ML IV SCH ×2 (09:27→23:37)
[2016-07-17] MEDS ORDERED: DUONEB (A & A) INH PRN (12:50)
[2016-07-17] MEDS ORDERED: XANAX PO PRN (12:50)
[2016-07-17] MEDS: OXY IR PO SCH ×3 (13:14→18:15)
[2016-07-17] MEDS: ZOFRAN IV PRN ×2 (13:14→18:16)
[2016-07-17] MEDS: ZANAFLEX PO SCH ×3 (13:15→18:15)
[2016-07-17] MEDS: CELEXA PO SCH (13:15)
--- NOTE | 2016-07-17 17:56 | PROGRESS NOTE ---
DATE: 07/17/2016 SUBJECTIVE: The patient is feeling better today. She has had a little less pain in her right axillary area. OBJECTIVE: Vital Signs: Blood pressure is 132/67 with a heart rate of 91, respirations are 18, temperature is 98.1 degrees oral with oxygen saturations of 96-100% on 2 L nasal cannula. Cardiovascular: Regular rate and rhythm. S1 and S2 appreciated. Pulmonary: Breath sounds with scattered wheezes with no increased work of breathing noted. Gastrointestinal: Abdomen soft, nontender, nondistended. Bowel sounds in all 4 quadrants. Neurologic: She is alert and oriented x3. Extremities: No clubbing, cyanosis, or edema. Right axilla continues with erythema surrounding the I and D site of does extend beyond the axilla, is being marked to follow progression. DIAGNOSTICS: WBC is 8.99 with hemoglobin 10.2, hematocrit 32.5 and platelets of 157,000. Sodium is 139, potassium 4.5, BUN 9, creatinine 0.5 with glucose of 135. ASSESSMENT: 1. Sepsis secondary to cellulitis. This is improved. 2. Cellulitis with abscess right axilla likely methicillin-resistant Staphylococcus. Will continue to treat as such. 3. Hypotension. This has resolved. 4. Leukocytosis. This has resolved. 5. Obesity. 6. Chronic obstructive pulmonary disease with mild exacerbation stable. PLAN: We will continue with her current antibiotic regimen as well as pain control with DuoNeb q.4-6 hours p.r.n. Further treatments as needed. Dictated by ASTON Jiménez for Yan Weinstein MD cc: ASTON Jiménez MD
[2016-07-17] MEDS: ROCEPHIN 1 GM/NS 1 GM/50 ML IVPB IV SCH (21:07)
[2016-07-18] MEDS: NORCO-7.5 PO PRN ×3 (01:03→21:43)
[2016-07-18] MEDS: ZOFRAN IV PRN (05:08)
--- NOTE | 2016-07-18 05:50 | PROGRESS NOTE ---
DATE: 07/18/2016 SUBJECTIVE: Patient doing better. Moved out of the ICU. No major issues reported by the nursing staff. Patient reports her right arm and armpit is feeling better. OBJECTIVE: Vital Signs: Patient is currently afebrile. Her vital signs have been stable. General: No acute distress. Cardiovascular: Regular rate and rhythm. Lungs: Grossly clear. Abdomen: Soft, nontender, nondistended. Extremities: The right axilla with only minimal erythema, where the incision and drainage apparently was. There is a faint pen evelyn marker were the previous erythema extended to. The erythema is much improved compared to this evelyn. Her tenderness has improved per the patient. LABORATORIES: Reviewed from yesterday. ASSESSMENT AND PLAN: A 56-year-old female with a right axillary abscess Right axillary abscess: At this time, doing well. Patient is on vancomycin. The area has improved dramatically. She can likely be transitioned over to Bactrim for p.o. antibiotics. cc: Tanvir Cash MD
[2016-07-18] MEDS: PRILOSEC PO SCH (06:20)
[2016-07-18] MEDS: ZANAFLEX PO SCH ×3 (10:23→18:16)
[2016-07-18] MEDS: CELEXA PO SCH (10:24)
[2016-07-18] MEDS: XANAX PO SCH ×2 (10:24→21:43)
[2016-07-18] MEDS: OXY IR PO SCH ×3 (10:24→18:16)
[2016-07-18] MEDS: NICODERM PATCH TD SCH (10:25)
[2016-07-18] MEDS: VANCOMYCIN 2,000 MG in NS 500 ML IV SCH ×2 (10:52→21:43)
[2016-07-18] MEDS ORDERED: IMITREX PO PRN (10:58)
--- NOTE | 2016-07-18 11:53 | PROGRESS NOTE ---
DATE: 07/18/2016 SUBJECTIVE: The patient notes she is feeling a little bit better. She is having a headache, notes that she has been having a headache for the past 2 days, notes this is not uncommon, and she has a history of migraines, although nothing seems to be helping the headache. Denies any blurred vision, change in vision. Denies any focal numbness, tingling. Denies any other skin rashes anywhere else. Notes that her axilla area is much improved. OBJECTIVE: Vital Signs: On physical, temperature 97, pulse 77, respiratory rate 18, BP 152/84, satting 97% on 2 L. General: Patient is awake, alert. She is currently in no respiratory distress. She is lying in the bed, pleasant to talk with. HEENT: Normocephalic, atraumatic. JELANI. Neck: Supple. CV: Regular rate. Chest: Relatively clear. Abdomen: Soft. Extremities: Moves all extremities. Neurologic: No changes. Skin: Indurated area in her right axilla is much improved. There is no drainage. Still mildly indurated, although the surrounding erythema has dramatically decreased. ASSESSMENT: 1. Cellulitis, certainly expect this to be methicillin-resistant Staphylococcus aureus. We will continue vancomycin and Rocephin. 2. Hypertension. Patient initially was noted to be hypotensive when she presented to the emergency department. Her blood pressure continues to climb. We will restart her home medications. 3. Chronic obstructive pulmonary disease. Restart her home breathing treatments. We will add lisinopril for blood pressure control. We will continue antibiotics today, hopefully home with oral Bactrim or doxycycline in the next few days. cc: Yan Weinstein MD
[2016-07-18] MEDS: PRINIVIL PO SCH (12:53)
[2016-07-18] MEDS ORDERED: ANORO ELLIPTA 62.5-25 MCG INH INH SCH (19:30)
[2016-07-18] MEDS: ROCEPHIN 1 GM/NS 1 GM/50 ML IVPB IV SCH (21:43)
[2016-07-19] MEDS: NORCO-7.5 PO PRN (05:51)
[2016-07-19] MEDS: PRILOSEC PO SCH ×2 (05:51→10:59)
[2016-07-19] MEDS: ZANAFLEX PO SCH ×2 (09:07→13:29)
[2016-07-19] MEDS: XANAX PO SCH ×2 (09:07→21:04)
[2016-07-19] MEDS: NICODERM PATCH TD SCH (09:07)
[2016-07-19] MEDS: OXY IR PO SCH ×3 (09:07→18:19)
[2016-07-19] MEDS: PRINIVIL PO SCH (09:07)
[2016-07-19] MEDS: CELEXA PO SCH (09:07)
[2016-07-19] MEDS: VANCOMYCIN 2,000 MG in NS 500 ML IV SCH ×2 (10:59→21:04)
--- NOTE | 2016-07-19 11:50 | PROGRESS NOTE ---
DATE: 07/19/2016 SUBJECTIVE: Patient notes that she feels a lot better this morning. She has not really been out of bed. Still having lots of pain in her right axilla but denies any fevers or chills. PHYSICAL EXAMINATION: Vital Signs: Temperature 98, pulse 68, respiratory rate 18, BP 130/70, saturation 99% on room air. General: Patient is awake, alert, currently in no real respiratory distress. She is pleasant to talk with. Neck: Supple. CV: Regular rate. Chest: Clear, nonlabored. Abdomen: Soft. Extremities: Moves all extremities. Neurologic: No focal changes. Skin: She is noted to have much less erythema, much less induration and edema to her right axilla, although paradi tender to palpation. No exudates noted. LABS: No current labs today. ASSESSMENT: 1. Leukocytosis, resolved. 2. Sepsis, resolved. 3. Septic shock with hypotension, resolved. In fact, blood pressures have continued to elevate and currently 150/66. 4. Hypertension. We will increase her lisinopril to 20 mg. 5. Depression. 6. Chronic anxiety. 7. Chronic pain. 8. Abscess, right axilla. The patient had an incision and drainage in the emergency room. Unfortunately, it does not appears as though a wound culture was set up. We will continue vancomycin and Rocephin today and hopefully home in the morning. cc: Yan Weinstein MD
[2016-07-19] MEDS: ROCEPHIN 1 GM/NS 1 GM/50 ML IVPB IV SCH (21:04)
[2016-07-19] MEDS ORDERED: ZANAFLEX PO ONE (21:10)
[2016-07-19] MEDS ORDERED: OXY IR PO ONE (21:10)
[2016-07-20] MEDS: OXY IR PO SCH ×2 (06:29→13:09)
[2016-07-20] MEDS: ZANAFLEX PO SCH ×2 (06:29→13:09)
[2016-07-20] MEDS: PRILOSEC PO SCH (06:30)
[2016-07-20] MEDS: CELEXA PO SCH (08:19)
[2016-07-20] MEDS: PRINIVIL PO SCH (08:19)
[2016-07-20] MEDS: XANAX PO SCH (08:19)
[2016-07-20] MEDS: NICODERM PATCH TD SCH (08:19)
[2016-07-20 11:19] VITALS: BP 143/62
[2016-07-20] MEDS ORDERED: VANCOMYCIN 1,750 MG in NS 250 ML IV SCH (12:00)
--- NOTE | 2016-07-21 07:03 | DISCHARGE SUMMARY ---
ADMISSION DATE: 07/15/2016 DISCHARGE DATE: 07/20/2016 ADMISSION DIAGNOSES: 1. Sepsis secondary to cellulitis. 2. Cellulitis with abscess to the right axilla, likely methicillin-resistant Staphylococcus aureus. 3. Hypotension. 4. Leukocytosis. 5. Obesity. 6. Chronic obstructive pulmonary disease with mild exacerbation. DISCHARGE DIAGNOSES: 1. Cellulitis with abscess to the right axilla likely methicillin-resistant Staphylococcus aureus. 2. Hypotension, resolved. 3. Sepsis, resolved. 4. Leukocytosis, resolved. 5. Obesity. 6. Chronic obstructive pulmonary disease, stable. SUMMARY OF FINDINGS: This is a 56-year-old female who presented to the ER with complaints of weakness, dizziness; noted to have an abscess under her right arm. An I and D was performed in the emergency room. She was noted to be hypotensive on arrival, having a blood pressure of 98/33, ten minutes later dropped to 49/35, thirty minutes later up to 77/42. Was saturating 89% on room air on arrival. White blood cells were 15.65. Creatinine was 1.7. She was admitted. Given 2 normal saline 1000 mL boluses and then placed on normal saline at 150 mL an hour. Was placed on Morgan-Synephrine per protocol and admitted to the ICU. Started on vancomycin and Rocephin IV. She had a consultation on 07/16/2016 with General Surgery, Dr. Alvarez, who felt that we needed to give the antibiotics time to work since she did have an I and D in the emergency room and if she did not improve, would need further surgical intervention. The patient did improve with her IV antibiotics. Her blood pressure improved. She was moved out of intensive care. The Morgan- Synephrine was discontinued and moved to the medical floor where she has continued her treatment. Her white blood cell count has now returned to normal at 8.99 on 07/17/2016. All of her electrolytes have returned to normal. Kidney function has returned to normal with a creatinine of 0.5 on 07/17/2016. As of note, there was not a wound culture set up, but we have treated it as an MRSA and it is felt like that she can safely be discharged home today. DISCHARGE MEDICATIONS: She will have a prescription for [place] 7.5, one p.o. b.i.d., #10 no refills; Bactrim DS 1 p.o. b.i.d. for 7 days, no refills. She will continue her Xanax 1 mg p.o. t.i.d. p.r.n., citalopram 20 mg p.o. daily. She will also have a new prescription for Prinivil 20 mg p.o. daily #30 with 2 refills. Oxycodone 30 mg t.i.d., Imitrex 100 mg p.o. daily p.r.n., Zanaflex 8 mg p.o. t.i.d., Anoro Ellipta 1 inhalation b.i.d., Ventolin inhaler 1 puff q.4 hours 4- 6 hours p.r.n., Bumex 2 mg p.o. b.i.d., ibuprofen 800 mg p.o. b.i.d., lidocaine/prilocaine application topically as needed, nicotine patch transdermally daily, potassium 20 mEq p.o. t.i.d. FOLLOWUP: She will need to followup with her primary care physician, Dr. Jai Cee MD in 1- 2 weeks. TIME SPENT: Thirty-five minutes. Dictated by ASTON Kohler for Yan Weinstein MD cc: ASTON Kohler MD Edwin K. Matthews, MD
== END 2016-07-20 15:35 | disposition home or self-care (01) ==
LOC: P.ED 17:43 → P.ICU 20:48 → P.MEDSURG 07-17 12:33
PROVIDERS: ATTEND Family Medicine

== ENCOUNTER 2016-09-12 21:27 | Inpatient (IN) ==
[2016-09-12] MEDS ORDERED: DILAUDID IM ONE (21:32)
[2016-09-12] MEDS ORDERED: PHENERGAN IM ONE (21:33)
[2016-09-12] MEDS ORDERED: DILAUDID IV PRN (22:13)
--- NOTE | 2016-09-12 22:18 | PROVIDER DOCUMENTATION ---
This chart was entered by Kat Pedroza Scribe, acting as scribe for Elroy Brenner MD. HPI-Musculoskeletal Pain/Inj - GENERAL Chief Complaint: Extremity Pain Stated Complaint: knee pain Time Seen by Provider: 09/12/16 21:32 Source: patient - HX OF PRESENT ILLNESS-MUSKULOSKELTAL Nature of Presenting Problem: 56 year old F presents to the ED with a cc of right knee pain. Pt states that she was walking in her driveway in flip flops when she slipped in some mud and felt knee pop and then fell. Quality of Pain: reports: aching Severity in ED: moderate Onset/Duration: just prior to arrival Timing: still present Any recent injury?: Yes Locality of Occurance: Home Similar Symptoms Previously?: No Recently seen or treated by another doctor?: No - FALL INJURY Location of Pain/Injury: reports: lower extremity Pain Radiation: reports: no radiation Reason for Fall: reports: slipped Symptoms prior to fall:: reports: none Loss of Consciousness: no loss of consciousness Injury Associated Symptoms: reports: joint pain Review of Systems - Adult - REVIEW OF SYSTEMS - ADULT Constitutional: denies: chills, fever Eyes: reports: no symptoms reported Ears, Nose, Mouth & Throat: reports: no symptoms reported Cardiovascular: reports: no symptoms reported Respiratory: reports: no symptoms reported Gastrointestinal: reports: no symptoms reported Genitourinary: reports: no symptoms reported Musculoskeletal: reports: joint pain, muscle aches. denies: muscle weakness Integumentary: denies: skin sores/ulcer, skin thickening Neurological: reports: no symptoms reported Psychiatric: reports: no symptoms reported Endocrine: reports: no symptoms reported Hematologic/Lymphatic: reports: no symptoms reported Allergic/Immunologic: reports: no symptoms reported All Other Systems: Reviewed and Negative Past History - Adult - PAST MEDICAL HISTORY-ADULT Review of Records: reports: Nursing Assessment Review, Medications Reviewed Major Childhood Illnesses: reports: denies history Cardiovascular: reports: HTN, hyperlipidemia Respiratory: reports: COPD Musculoskeletal: reports: chronic pain (back) - PRIOR SURGERIES/PROCEDURES Surgical/Procedure History: reports: tonsillectomy - IMMUNIZATION STATUS Childhood Immunizations: See Nurse Assessment Flu Vaccine: See Nurse Assessment - FAMILY HISTORY Family History: reviewed, not pertinent - SOCIAL HISTORY Smoking: cigarettes Provider spent 3-5 mins advising pt. on dangers of tobacco.: Discussed manners to quit use, and f/u contacts for add'l counseling. Substance Use: none/never Alcohol Use Frequency: never Physical Exam-Injury Related - Physical Exam-Injury Related Initial Vital Signs Reviewed: Yes General Appearance: appears well, alert, no apparent distress Respiratory: no respiratory distress Cardiovascular: regular rate, rhythm Extremity: deformity (to knee cap, cephalad and moderate swelling), tenderness ( anterior right knee) Integumentary: abrasion (right anterior knee) Psych/Mental Status: normal mood/affect, normal thought content, normal thought process, oriented x 3 Progress - PLAN OF CARE/RESULTS Progress/Plan/Lab Results: Vital Signs - 8 hr 09/12/16 21:28 Temperature 97.9 F Pulse Rate 81 Respiratory Rate 18 Blood Pressure 96/70 O2 Sat by Pulse Oximetry 90 L Orders Category Date Time Status Admit - [facility] Routine AdmDCTranf 09/12/16 22:13 Ordered Activity - Strict Bedrest ORDERED Care 09/12/16 22:13 Active Call Admitting on Arrival AT ADMISSION Care 09/12/16 22:13 Active Vital Signs Order ARRIVAL TO ROOM Care 09/12/16 22:13 Active NPO Diet 09/13/16 00:01 Active KNEE 3 VIEWS RIGHT [RAD] Stat Exams 09/12/16 21:33 Taken Hydromorphone [Dilaudid] Med 09/12/16 22:13 Active 1 mg IV Q2HR PRN Hydromorphone [Dilaudid] Med 09/12/16 21:32 Discontinued 2 mg IM NOW ONE Promethazine [Phenergan] Med 09/12/16 21:33 Discontinued 25 mg IM NOW ONE Transfer/Admit Order [TRANSFER] Routine Transfer 09/12/16 22:17 Ordered - XRAY 1 XRAY: Right XRAY Study: Knee Impression: Abnormal XRAY Interpretation: patellar fracture with displacement: Dr. Brenner(ER MD) - CONSULTS/PCP/HOSPITALIST Notification #1 *Consult/PCP/Hospitalist*: Dr. Mejia (orthopedics) Time Discussed: 22:09 Consult Disposition: Admit (admit to the hospitalist and will consult in the morning) #2 Consult: Dr. Almeida (hospitalist) Departure - Departure Date of Disposition Decision: 09/12/16 Time of Disposition Decision: 22:17 DIAGNOSIS: Right patella fracture Qualifiers: Encounter type: initial encounter Fracture type: closed Fracture morphology: transverse Fracture alignment: displaced Qualified Code(s): S82.031A - Displaced transverse fracture of right patella, initial encounter for closed fracture Disposition: ADMITTED INPATIENT 09 Certified Medical Emergency: Emergent Condition: Stable Referrals and Follow-Ups: None,PCP [Primary Care Provider] - - Critical Care Note This patient required my direct & personal management of CC.: No This chart was documented by the indicated scribe, (Kat Pedroza Scribe) and accurately reflects the services I performed and decisions made by me, Elroy Brenner MD, as attested by the provider's signature.
[2016-09-12 22:50] LABS: MANUAL DIFF NEEDED? NO
[2016-09-12 22:57] LABS: BASO% 0.1 % (0.0-0.8); EOS# 0.08 X1000 (0.0-0.7); EOS% 0.7 % (0.0-10.0); HEMATOCRIT 43.7 % (37.0-47.0); HEMOGLOBIN 13.9 g/dL (12.0-16.0); IMM GRAN# 0.02 X1000 (0.0-0.04); IMM GRAN% 0.2 % (0.0-0.5); LYMPH% 22.4 % (20.5-51.1); MCH 30.3 PG (27-31); MCHC 31.8 g/dL (33-37); MCV 95.4 FL (81-99); MONO# 0.91 X1000 (0.11-0.59); MONO% 8.5 % (1.7-9.3); MPV 10.2 FL (7.4-10.4); NEUT% 68.1 % (42.2-75.2); PLT 184 X1000 (130-400); RBC 4.58 XMIL (4.2-5.4)
[2016-09-12 23:14] LABS: AGAP 10; ALBUMIN 4.1 g/dL (3.5-5.0); ALKALINE PHOSPHATASE 101 U/L (32-104); BUN 21 mg/dL (8-22); CHLORIDE 102 mmol/L (98-107); COSMO 276; GOT 15 U/L (10-30); GPT 9 U/L (10-36); POTASSIUM 5.1 mmol/L (3.5-5.1); SODIUM 136 mmol/L (136-145); TCO2 24 mmol/L (25-35); TOTAL PROTEIN 7.4 g/dL (6.3-8.3)
[2016-09-12 23:19] LABS: URINE CULTURE PL NEEDED? NO
[2016-09-12 23:23] LABS: BILIRUBIN URINE NEGATIVE (NEGATIVE); BLOOD URINE NEGATIVE (NEGATIVE); CLARITY CLEAR (CLEAR); COLOR YELLOW; GLUCOSE URINE NEGATIVE (NEGATIVE); LEUKOCYTES URINE NEGATIVE (NEGATIVE); NITRITE URINE NEGATIVE (NEGATIVE); PROTEIN URINE NEGATIVE (NEGATIVE); SP GRAVITY URINE 1.025; URINE SOURCE CATH; UROBILINOGEN URINE NORMAL
[2016-09-12 23:34] LABS: URINE EPITHELIAL CELLS <10 /HPF (<10); URINE RBC <10 /HPF (<10); URINE WBC <10 /HPF (<10)
[2016-09-12] MEDS ORDERED: ZOFRAN IV PRN (23:52)
[2016-09-12] MEDS ORDERED: NORCO-7.5 PO PRN (23:52)
[2016-09-12] MEDS ORDERED: NS 1,000 ML IV SCH (23:52)
[2016-09-12] MEDS ORDERED: MORPHINE IV PRN (23:55)
[2016-09-12] MEDS ORDERED: LOVENOX SUBQ ONE (23:57)
[2016-09-13] MEDS ORDERED: DUONEB (A & A) INH PRN (00:08)
[2016-09-13] MEDS ORDERED: XANAX PO PRN (00:08)
[2016-09-13] MEDS ORDERED: VENTOLIN HFA INH PRN (02:05)
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
[2016-09-13] MEDS ORDERED: DUONEB (A & A) INH SCH (03:30)
[2016-09-13 05:44] LABS: MANUAL DIFF NEEDED? NO
[2016-09-13 05:55] LABS: BASO% 0.2 % (0.0-0.8); EOS# 0.12 X1000 (0.0-0.7); EOS% 1.4 % (0.0-10.0); HEMATOCRIT 40.8 % (37.0-47.0); HEMOGLOBIN 13.2 g/dL (12.0-16.0); LYMPH# 2.73 X1000 (1.2-3.4); LYMPH% 31.7 % (20.5-51.1); MCH 31.3 PG (27-31); MCHC 32.4 g/dL (33-37); MCV 96.7 FL (81-99); MONO# 1.02 X1000 (0.11-0.59); MONO% 11.8 % (1.7-9.3); MPV 10.1 FL (7.4-10.4); NEUT% 54.9 % (42.2-75.2); PLT 179 X1000 (130-400); RBC 4.22 XMIL (4.2-5.4)
[2016-09-13] MEDS ORDERED: MORPHINE IV PRN (06:05)
[2016-09-13 06:19] LABS: AGAP 5; BUN 17 mg/dL (8-22); CALCIUM 9.1 mg/dL (8.8-10.2); CHLORIDE 104 mmol/L (98-107); COSMO 279; POTASSIUM 5.3 mmol/L (3.5-5.1); SODIUM 139 mmol/L (136-145); TCO2 30 mmol/L (25-35)
--- NOTE | 2016-09-13 06:43 | CONSULTATION ---
DATE OF CONSULTATION: 09/13/2016 CHIEF COMPLAINT: Right knee pain. HISTORY: The patient is a pleasant, 56-year-old female who is status post fall last night in her driveway and landed on her right knee. She states she felt a pop and developed knee pain and discomfort. She was seen at [place] emergency room and x-rays were obtained that revealed a displaced comminuted patella fracture. She was subsequently transferred to [facility] for orthopedic evaluation. She denies any loss of consciousness and has no other complaints other than her chronic low back pain secondary to spinal stenosis. HOME MEDICATIONS: DuoNeb, albuterol nebulizer, Ventolin inhaler, Xanax, bumetanide, Celexa, hydrocodone 7.5, Motrin 800 mg, lidocaine topical cream, lisinopril, NicoDerm, oxycodone, potassium, Zanaflex, sumatriptan, Imitrex, umeclidinium bromide/vilanterol inhaler daily. ALLERGIES: Penicillin. PAST MEDICAL HISTORY: Significant for COPD, hypertension, chronic low back pain secondary spinal stenosis, tobacco use. PAST SURGICAL HISTORY: Facial reconstruction, tonsillectomy, right foot surgery, carpal tunnel surgery, stomach surgery as an infant. PHYSICAL EXAMINATION: General: The patient is awake, alert, and cooperative with the exam. Extremities: She has diffuse swelling about the knee. She has significant tenderness to palpation, tenderness to gentle movement. Her calf is soft. She is grossly neurovascularly distally. Has active dorsiflexion and plantarflexion. DIAGNOSTIC DATA: X-rays were reviewed and revealed a right displaced patella fracture with comminution in the inferior pole. IMPRESSION: Right displaced comminuted patella fracture. PLAN: At this point, discussed treatment options with the patient. At this time, would recommend proceed with open reduction and internal fixation. Risks and benefits of surgery were explained including the risks of anesthesia, , bleeding, infection, failure to relieve pain, postop stiffness, nerve injury, blood clots, failure of fixation, posttraumatic arthritis, and other imponderables. All questions were answered. The patient agrees to the treatment plan. cc: MD Monica Sher MD
--- NOTE | 2016-09-13 07:14 | Diag Imaging Result Doc PS360 ---
EXAM: KNEE 3 VIEWS RIGHT HISTORY: fall TECHNIQUE: Right knee two views COMMENT: There is comminuted fracture of the patella with distraction of the superior fragment. Some osteoarthritic changes are present in the medial joint compartment. There are no previous studies. IMPRESSION: Comminuted fracture of the patella. Electronically signed by Blue Smith 09/13/2016 7:12 AM
[2016-09-13] MEDS ORDERED: SENSORCAINE 0.5%-EPI 1:200,000 ONE (07:26)
[2016-09-13] MEDS ORDERED: VANCOMYCIN 1 GM/NS 0 GM/0 ML IVPB ONE (07:27)
[2016-09-13] MEDS ORDERED: KEFZOL 2 GM/D5W 2 GM/50 ML IVPB ONE (07:27)
[2016-09-13] MEDS ORDERED: ZOFRAN ONE (07:28)
[2016-09-13] MEDS ORDERED: XYLOCAINE-MPF 2% ONE ×3 (07:28→09:48)
[2016-09-13] MEDS ORDERED: ZEMURON ONE ×2 (07:28→08:18)
[2016-09-13] MEDS ORDERED: NEOSPORIN G.U. IRRIGANT ONE (07:28)
[2016-09-13] MEDS ORDERED: QUELICIN (DOSE) ONE (07:28)
[2016-09-13] MEDS ORDERED: ROBINUL ONE ×2 (07:28→08:30)
[2016-09-13] MEDS ORDERED: DIPRIVAN 1% ONE (07:29)
[2016-09-13] MEDS ORDERED: FENTANYL ONE (07:29)
[2016-09-13] MEDS ORDERED: ANORO ELLIPTA 62.5-25 MCG INH INH SCH (07:30)
[2016-09-13] MEDS ORDERED: EPHEDRINE ONE (08:24)
[2016-09-13] MEDS ORDERED: SODIUM CHLORIDE 0.9% 10 ML ONE (08:24)
[2016-09-13] MEDS ORDERED: NEOSTIGMINE ONE (08:30)
[2016-09-13] MEDS ORDERED: NICODERM PATCH TD SCH (09:00)
[2016-09-13] MEDS ORDERED: OXY IR PO SCH (09:00)
[2016-09-13] MEDS ORDERED: PRINIVIL PO SCH (09:00)
[2016-09-13] MEDS ORDERED: DILAUDID ONE (09:03)
[2016-09-13] MEDS ORDERED: NS 1,000 ML ONE (10:10)
[2016-09-13] MEDS: DILAUDID ONE ×4 (10:25→11:02)
[2016-09-13] MEDS ORDERED: HALDOL IV PRN (11:50)
[2016-09-13] MEDS ORDERED: MILK OF MAGNESIA PO PRN (11:50)
[2016-09-13] MEDS: KLOR-CON PO SCH ×3 (14:47→18:24)
[2016-09-13] MEDS: BUMEX PO SCH ×2 (14:47→20:37)
[2016-09-13] MEDS: TYLENOL PO SCH ×2 (14:48→20:38)
[2016-09-13] MEDS: PERIDEX MT SCH ×2 (16:45→20:38)
--- NOTE | 2016-09-13 16:45 | OPERATIVE NOTE ---
PROCEDURE DATE: 09/13/2016 PREOPERATIVE DIAGNOSIS: Right displaced comminuted patella fracture. POSTOPERATIVE DIAGNOSIS: Right displaced comminuted patella fracture. PROCEDURES: Open reduction, internal fixation right patella. SURGEON: Uri Mejia MD ANESTHESIA: General. IV FLUIDS: 1900 mL lactated Ringer. ESTIMATED BLOOD LOSS: 25 mL. TOURNIQUET TIME: 66 minutes at 350 mmHg. COMPLICATIONS: None. INDICATION: The patient is a pleasant 56-year-old female who is 1-day status post fall in her driveway landing on the right knee. She felt immediate pain and discomfort and the patient presented to the [place] [facility]. X-rays revealed displaced patella fracture. He subsequently transferred to the [facility] for Orthopedic evaluation. A recommendation to proceed with open reduction, internal fixation was offered. Risks and benefits of surgery were explained, including risk of anesthesia, , bleeding, infection, failure to relieve pain, postoperative stiffness, nerve injury, blood clots, and other imponderables. All questions were answered. The patient wished to proceed with surgery. DETAILS OF OPERATION: The patient was taken to the operating room and placed supine on the operating table. Once adequate anesthesia was obtained, patient's right lower extremity was subsequently and draped in usual sterile fashion. An Esmarch was used to exsanguinate the right lower extremity and the tourniquet was inflated to 350 mmHg. A standard anterior incision made with skin knife. Medial and lateral skin envelopes were developed. The fracture hematoma was evacuated. Attention was then turned to the patella. Debridement of the patella was conducted on the bone surfaces with a curette. After adequate debridement had been conducted, the wound was copiously irrigated. The patient did have a small area of comminution on the inferior pole. After this had been performed, a pointed reduction clamp was used to obtain the reduction. There appeared to be good alignment clinically as well as C-arm visualization in both AP and lateral projections. While maintaining the reduction, 2 parallel guide pins were then placed. The length of the screws was determined and a near cortex was drilled. A size 36 mm screw was placed medial over the guidepin guide pin and had good purchase. A 38 mm was then placed over the lateral guide pin and had good purchase as well. There appeared to be good and stable fixation. After this had been performed, an 18-gauge wire was passed through each 4.5 cannulated screw and then retrieved anteriorly in a [id number]-im-[id number] fashion and was tensioned. After tensioning the 18-gauge wire, the excess wire was cut and this portion was bent in order to avoid prominence. C-arm visualization was used to confirm good alignment of the fracture as well as good position of the hardware. The wound was copiously irrigated once again. A #5 FiberWire was then passed in a cerclage-type fashion and tied. The knee was then gently flexed and appeared to have good stable fixation. The wound was copiously irrigated once again. #5 FiberWire was used to repair the retinaculum both medially and laterally. Final irrigation was then performed. 2-0 Vicryl was then used to repair the subcutaneous tissue, followed by skin carlo. 0.25% Marcaine with epinephrine was injected. Betadine-soaked Adaptic was then placed on the anterior aspect of the knee followed by 4x4s, ABD pad, Webril and an Andrea wrap. A knee immobilizer was then placed. The patient tolerated the procedure well with no complications. She was transferred to the recovery room in stable condition. cc: MD Monica Sher MD
--- NOTE | 2016-09-13 16:57 | PROGRESS NOTE ---
DATE: 09/13/2016 SUBJECTIVE: This morning, Ms. Valle refers to be doing fine. She just came from the orthopedic surgery. She was a little bit drowsy from the surgery. OBJECTIVE: Vital signs: Blood pressure is 145/67, respirations 20, pulse is 79, respirations 20, temperature 98 degrees. General: Ms. Valle is a 56-year-old, morbidly obese, female. She was in bed. No distress. HEENT: Mucosa is pink and moist. Anicteric. Acyanotic. Neck: Supple. Chest: Good air entry bilaterally. No crepitations. Cardiovascular: Regular rate and rhythm. Abdomen: Soft, nontender. Extremities: No pedal edema. The right leg is in extension with orthopedic device immobilizing the knee. Neurologic: Patient is awake and alert and oriented x4. No focal neurological deficit. LABORATORY DATA: WBC is 8.62, hemoglobin is 13.2, platelet count is 179,000. Chemistry is reviewed and completely normal except for potassium of 5.3. TSH is 4.31. ASSESSMENT AND PLAN: 1. Right patellar fracture after a fall, status post repair today by Dr. Mejia. 2. Thyroid function test abnormality. We are going to repeat this with a free T4 to see if the patient is truly hypothyroid. 3. Chronic obstructive pulmonary disease. Currently not in exacerbation. 4. Active tobacco use. 5. Hypertension. 6. Obesity. 7. Suspected sleep apnea. 8. Mild hyperkalemia. We are going to repeat this to make sure it is not a lab error. cc: MD Monica Peñaloza MD
[2016-09-13] MEDS: KEFZOL 2 GM/D5W 2 GM/50 ML IVPB IV SCH (18:23)
[2016-09-13] MEDS: NS 1,000 ML IV SCH (20:37)
[2016-09-13] MEDS: COLACE PO SCH (20:37)
[2016-09-13] MEDS: OXY IR PO SCH (20:38)
[2016-09-13] MEDS: ZOFRAN IV PRN (20:42)
[2016-09-13] MEDS: DILAUDID IV PRN (22:10)
[2016-09-14] MEDS: DILAUDID IV PRN ×4 (00:07→10:34)
[2016-09-14] MEDS: ZOFRAN PO PRN ×2 (00:07→10:34)
[2016-09-14] MEDS: KEFZOL 2 GM/D5W 2 GM/50 ML IVPB IV SCH ×2 (03:05→08:41)
[2016-09-14] MEDS: TYLENOL PO SCH (03:05)
[2016-09-14] MEDS: ZOFRAN IV PRN (03:05)
[2016-09-14] MEDS: XARELTO PO SCH (05:13)
--- NOTE | 2016-09-14 05:31 | EKG Report ---
Test Performed on : 09/13/2016 05:49:37 AM Test Reason : PreOp/Re-Order Blood Pressure : / mmHG Vent. Rate : 071 BPM Atrial Rate : 071 BPM P-R Int : 186 ms QRS Dur : 090 ms QT Int : 410 ms P-R-T Axes : 070 016 044 degrees QTc Int : 445 ms Normal sinus rhythm. Possible Anterior infarct , age undetermined Abnormal ECG When compared with ECG of 15-JUL-2016 18:24, No significant change was found Confirmed by Alannah Wilson MD ([id number]) on 09/14/2016 9:17:29 AM
[2016-09-14] MEDS: NS 1,000 ML IV SCH ×3 (05:52→23:38)
[2016-09-14 06:54] LABS: HEMATOCRIT 40.8 % (37.0-47.0); HEMOGLOBIN 12.6 g/dL (12.0-16.0)
--- NOTE | 2016-09-14 06:54 | PROGRESS NOTE ---
DATE: 09/14/2016 SUBJECTIVE: The patient is a pleasant 56-year-old female, who is 1 day status post open reduction and internal fixation of right patella. She has been experiencing nausea and vomiting. Also experiencing some discomfort. OBJECTIVE: On physical examination the patient's right lower extremity her dressing is intact. Her calf is soft. She has active dorsiflexion and plantar flexion. She is grossly neurovascularly intact. Her hemoglobin and hematocrit are pending. IMPRESSION: One day status post open reduction and internal fixation of right patella. PLAN: At this point, the patient will be maintained in a knee immobilizer with full extension all times. Will mobilize physical therapy with touchdown weightbearing right lower extremity. Tank Setter has been consulted for discharge planning. cc: MD Monica Sher MD
[2016-09-14 07:20] LABS: AGAP 11; BUN 8 mg/dL (8-22); CALCIUM 8.4 mg/dL (8.8-10.2); CHLORIDE 99 mmol/L (98-107); COSMO 277; POTASSIUM 3.9 mmol/L (3.5-5.1); SODIUM 139 mmol/L (136-145); TCO2 29 mmol/L (25-35)
[2016-09-14 07:29] LABS: FREE T4 1.49 ng/dL (0.93-1.70)
[2016-09-14] MEDS: OXY IR PO SCH ×3 (08:37→21:20)
[2016-09-14] MEDS: BUMEX PO SCH ×2 (08:38→21:21)
[2016-09-14] MEDS: KLOR-CON PO SCH ×3 (08:38→17:16)
[2016-09-14] MEDS: PERIDEX MT SCH ×2 (08:38→21:19)
[2016-09-14] MEDS: FERROUS SULFATE PO SCH (08:38)
[2016-09-14] MEDS: NORCO-10 PO PRN ×3 (12:51→23:38)
--- NOTE | 2016-09-14 16:51 | PROGRESS NOTE ---
DATE: 09/14/2016 SUBJECTIVE: Today Ms. Valle refers to be doing a little better. She denies any acute complaints. OBJECTIVE: Vital Signs: Her blood pressure is 122/64, pulse 85, respirations 14, temperature 98.3 degrees. General: Ms. Valle is a 56-year-old, female. She is in bed, in no distress. HEENT: Mucosa is pink and moist. Anicteric. Acyanotic. Neck: Supple. Chest: Clear. Cardiovascular: Regular rate and rhythm. Abdomen: Soft, nontender. Extremities: No pedal edema. Patient has the right leg in full extension, immobilized with an orthopedic device. Central Nervous System: Patient is alert and oriented x4. There is no focal neurological deficit. LABORATORY DATA: Hemoglobin is 12.6, hematocrit is 40.8. Chemistry is reviewed and completely unremarkable. Repeat TSH is 0.34, free T4 is 1.49 which is normal. ASSESSMENT: 1. Right patellar fracture after a fall status post repair by Dr. Mejia. Today is day 1 postop. Patient seems to be doing fine. She has been evaluated by PT and there is a plan to discharge her to rehabilitation. 2. Chronic obstructive pulmonary disease currently not in exacerbation. 3. Active tobacco use. Patient has been counseled. 4. Hypertension stable. 5. Obesity. 6. Suspected sleep apnea. 7. Mild hyperkalemia resolved. We think this was a lab error. In general, I think Ms. Valle is doing fine. She got admitted because of a right displaced comminuted patellar fracture which Dr. Mejia did an open reduction and internal fixation of the patellar fracture on the day of admission. She seems to be doing fine. She has been evaluated by PT today and they recommended inpatient rehabilitation. We have consulted the social science manager and we are pending bed availability for inpatient rehabilitation. Patient will continue with her current medications. We started her on Xarelto for DVT prophylaxis. cc: MD Monica Peñaloza MD MTDD
[2016-09-14] MEDS: COLACE PO SCH (21:20)
[2016-09-15] MEDS: NORCO-10 PO PRN ×3 (05:13→18:34)
[2016-09-15] MEDS: XARELTO PO SCH (05:13)
[2016-09-15] MEDS ORDERED: BUMEX PO PRN (05:17)
[2016-09-15 06:32] LABS: HEMATOCRIT 40.7 % (37.0-47.0); HEMOGLOBIN 13.1 g/dL (12.0-16.0)
--- NOTE | 2016-09-15 08:04 | PROGRESS NOTE ---
DATE: 09/15/2016 SUBJECTIVE: The patient is a 56-year-old female who is status post open reduction internal fixation of right comminuted patellar fracture. She is currently resting comfortably. OBJECTIVE: On physical exam of the right lower extremity, her dressing is intact. Her calf is soft. She is neurovascularly intact distally. Active dorsiflexion and plantar flexion. DIAGNOSTIC DATA: Her hemoglobin is 13.1, hematocrit is 40.7. IMPRESSION: Postoperative day number 2, status post right open reduction internal fixation of right patella. PLAN: At this point, we will change her dressing, and we will continue to maintain the knee in full extension with the knee immobilizer. She has been slow to mobilize with physical therapy, and it was felt she would benefit from inpatient rehabilitation. The patient is agreeable to this. We will make these arrangements. cc: MD Monica Sher MD
[2016-09-15] MEDS: KLOR-CON PO SCH ×3 (08:30→18:34)
[2016-09-15] MEDS: FERROUS SULFATE PO SCH (08:30)
[2016-09-15] MEDS: OXY IR PO SCH ×3 (08:30→22:35)
[2016-09-15] MEDS: PERIDEX MT SCH ×2 (08:31→22:35)
--- NOTE | 2016-09-15 15:28 | PROGRESS NOTE ---
DATE: 09/15/2016 SUBJECTIVE: The patient has no focal complaints. Seems to be doing okay. OBJECTIVE: Vital signs: Blood pressure 128/66, heart rate 94, respiratory rate 20, temperature 99.2 degrees, 96% on 2 L. Cardiovascular: Regular rate, rhythm. Pulmonary: Bilateral breath sounds. Clear to auscultation. GI: Soft, nontender, nondistended. Bowel sounds are positive. Extremities: Right lower extremity in a cast. LAB: Hemoglobin and hematocrit of 13 and 40. PROBLEM LIST: 1. Right patellar fracture. This is postop day 2, doing well with PT. Plan is for rehab. 2. Chronic obstructive pulmonary disease appears to be stable. 3. Hypertension also continues to be stable. DISPOSITION: Likely plan for PT and inpatient rehabilitation hopefully as soon as tomorrow. Will continue to follow. cc: MD Monica Molina MD
[2016-09-15] MEDS: NS 1,000 ML IV SCH (18:34)
[2016-09-15] MEDS: COLACE PO SCH (22:36)
[2016-09-16] MEDS: NORCO-10 PO PRN ×3 (04:53→18:08)
[2016-09-16] MEDS: XARELTO PO SCH (05:08)
[2016-09-16 06:04] LABS: HEMOGLOBIN 12.1 g/dL (12.0-16.0)
[2016-09-16] MEDS: OXY IR PO SCH ×3 (08:29→21:13)
[2016-09-16] MEDS: PERIDEX MT SCH ×2 (08:30→21:14)
[2016-09-16] MEDS: KLOR-CON PO SCH ×3 (08:30→18:08)
[2016-09-16] MEDS: FERROUS SULFATE PO SCH (08:30)
--- NOTE | 2016-09-16 15:15 | PROGRESS NOTE ---
DATE: 09/16/2016 SUBJECTIVE: Patient is a 56-year-old female who is 3 days status post open reduction, internal fixation right patella. She is currently sitting in the chair resting comfortably. OBJECTIVE: Patient's wound surgical wound looks okay. She has a small amount of bloody drainage. She does have an abrasion just adjacent to the wound with some local erythema and some serous-type drainage. Her calf is soft. She is grossly neurovascularly intact. LABORATORY: Her hemoglobin is 12.1, hematocrit is 39. IMPRESSIONS: Postoperative day #3 status post open reduction, internal fixation right patella. PLAN: At this point, the patient's discharge plan is for patient to be transferred to Inpatient Rehabilitation. She will be maintained in full extension with knee immobilizer and be touch-down weightbearing right lower extremity. Given the patient's abrasion and continuing with some drainage and so close to the wound, we will place her on Bactrim DS p.o. b.i.d. cc: MD Monica Sher MD MTDD
--- NOTE | 2016-09-16 17:10 | PROGRESS NOTE ---
DATE: 09/16/2016 SUBJECTIVE: The patient has no complaints. She is sitting up in bed. OBJECTIVE: Vitals: Blood pressure 124/70, heart rate 77, respiratory rate 16, temperature 98.6 degrees, 100% on room air. Cardiovascular: Regular rate and rhythm. Pulmonary: Bilateral breath sounds. Clear to auscultation. GI: Soft, nontender, nondistended. Bowel sounds are positive. Extremity: Her right lower extremity and her calves LABORATORY DATA: Hemoglobin and hematocrit 12 and 39, PROBLEM LIST: 1. Right patellar fracture status post open reduction, internal fixation. Postop day 3. She is doing well, now is planned for rehab. 2. Chronic obstructive pulmonary disease. This appears to be stable. No major issues. 3. Hypertension. Continue regular medications and monitor closely. 4. Disposition is for inpatient rehab hopefully in the next couple of days. cc: MD Monica Molina MD
[2016-09-16] MEDS: SEPTRA DS PO SCH (21:12)
[2016-09-16] MEDS: COLACE PO SCH (21:13)
[2016-09-17] MEDS: DILAUDID IV PRN (03:21)
[2016-09-17] MEDS: XARELTO PO SCH (05:48)
--- NOTE | 2016-09-17 06:32 | PROGRESS NOTE ---
DATE: 09/17/2016 SUBJECTIVE: Patient is a pleasant, 56-year-old female who is 4 days status post open reduction and internal fixation of the right patella. She has no complaints this morning. PHYSICAL EXAMINATION: The patient's dressing is intact. Immobilizer is in place. Calf is soft. She has active dorsiflexion and plantarflexion. IMPRESSION: Postoperative day #4 status post open reduction and internal fixation of the right patella. PLAN: At this point, the patient is stable from an orthopedic standpoint. She will be maintained with the knee immobilizer, touchdown weightbearing. We will plan on treating her with Bactrim DS for a total of 10 days. cc: MD Monica Sher MD
[2016-09-17] MEDS: KLOR-CON PO SCH ×3 (08:15→16:14)
[2016-09-17] MEDS: SEPTRA DS PO SCH (08:15)
[2016-09-17] MEDS: FERROUS SULFATE PO SCH (08:15)
[2016-09-17] MEDS: PERIDEX MT SCH (08:15)
[2016-09-17] MEDS: OXY IR PO SCH ×2 (08:16→16:14)
--- NOTE | 2016-09-17 10:54 | Diag Imaging Result Doc PS360 ---
CHEST-PORTABLE - 09/17/2016 INDICATION: rehab TECHNIQUE: COMPARISON: 07/15/2016 FINDINGS: The lungs are normally expanded and clear. Heart size and mediastinal contours are normal. No pneumothorax or pleural effusion. IMPRESSION: Negative exam. Electronically signed by Pepito Gill 09/17/2016 10:51 AM
[2016-09-17 11:04] VITALS: BP 124/63
[2016-09-17] MEDS: NORCO-10 PO PRN (11:30)
--- NOTE | 2016-09-17 14:46 | DISCHARGE SUMMARY ---
ADMISSION DATE: 09/12/2016 DISCHARGE DATE: 09/17/2016 CONSULTATIONS: Dr. Uri Mejia with Orthopedics. PERTINENT PROCEDURES: 1. Right knee x-ray showed a comminuted fracture of the patella. 2. Open reduction internal fixation of right patella performed by Dr. Mejia. 3. Chest x-ray is negative. DISCHARGE DIAGNOSES: 1. Right patella fracture, status post open reduction internal fixation. The patient is going to be touchdown weightbearing to the right lower extremity with an immobilizer. [place] will be removed in 10 days and is being discharged to rehabilitation. 2. Chronic obstructive pulmonary disease without exacerbation. 3. Hypertension. Continue home medicines. 4. Spinal stenosis. Continue with pain management. 5. Continued tobacco abuse. Patient has been educated daily about smoking cessation as well as the means to quit. HOSPITAL COURSE: Ms Valle is a 56-year-old, female, who carries a past medical history of COPD, chronic lower back pain secondary to spinal stenosis, hypertension, tobacco use. She reported she was walking in a pair of flip-flops in the front of her driveway which was wet. She slipped forward landing on her knee. As her son tried to get her up, she felt a pop in her right knee. She then collapsed because she could not bear weight on it. Subsequently, she developed some intense pain in the right knee area. She was brought to [facility] ED and evaluated. X-rays confirmed a right patellar fracture. She was transferred to [facility] where she was evaluated by Dr. Mejia with Orthopedics. The patient did undergo an open reduction and internal fixation to the right patella by Dr. Mejia. She has worked with physical therapy. She is now touchdown weightbearing to the right lower extremity with an immobilizer. She has been accepted to [facility]. Vital signs at the time of her discharge: Temperature is 97.7 degrees, heart rate 86, respirations 18, blood pressure is 124/63, O2 is 97% on 2 L nasal cannula. DISCHARGE DIET: GI soft. DISCHARGE MEDICATIONS: As per MAY. Please see final dictation. FOLLOWUP: The patient is being discharged to [facility] where she will be touchdown weightbearing to her right lower extremity as well as use of an immobilizer. She will have her carlo and/or sutures removed in 10 days on 09/27/2016 at the facility. She will follow up with Dr. Mejia in 3-4 weeks for re-evaluation. Patient can return to the ED for any worsening of symptoms. DISCHARGE TIME: 30 minutes. Dictated by ASTON Askew for Kale Diehl MD cc: MD Monica Molina MD pt examined, agree with above AP[place]OT MTDD
== END 2016-09-17 17:22 ==
LOC: P.ED 21:27 → 4N 21:27 → OBSVTOIN 22:39 → SUATTDRO 22:39
PROVIDERS: ADMIT Internal Medicine; ATTEND Internal Medicine

== ENCOUNTER 2019-06-15 20:15 | Observation (INO) ==
[2019-06-15 20:41] LABS: BASO# 0.03 X1000 (0.0-0.2); BASO% 0.3 % (0.0-0.8); HEMATOCRIT 49.4 % (37.0-47.0); HEMOGLOBIN 14.4 g/dL (12.0-16.0); IMM GRAN# 0.04 X1000 (0.0-0.04); IMM GRAN% 0.4 % (0.0-0.5); LYMPH# 1.55 X1000 (1.2-3.4); LYMPH% 16.5 % (20.5-51.1); MCH 28.6 PG (27-31); MCHC 29.1 g/dL (33-37); MCV 98.2 FL (81-99); MONO# 0.72 X1000 (0.11-0.59); MONO% 7.7 % (1.7-9.3); MPV 10.5 FL (7.4-10.4); NEUT# 7.03 X1000 (1.4-6.5); NEUT% 75.1 % (42.2-75.2); PLT 163 X1000 (130-400); RBC 5.03 XMIL (4.2-5.4); RDW 15.5 % (11.5-14.5); WBC 9.37 X1000 (4.8-10.8)
[2019-06-15] MEDS ORDERED: NS 1,000 ML IV ONE ×3 (20:51→23:14)
[2019-06-15 21:05] LABS: URINE SOURCE CATH
[2019-06-15 21:09] LABS: BILIRUBIN URINE NEGATIVE (NEGATIVE); BLOOD URINE TRACE (NEGATIVE); COLOR YELLOW; GLUCOSE URINE NEGATIVE (NEGATIVE); KETONE URINE NEGATIVE (NEGATIVE); LEUKOCYTES URINE TRACE (NEGATIVE); NITRITE URINE NEGATIVE (NEGATIVE); PH URINE 6.5; PROTEIN URINE 200 mg/dL (NEGATIVE); SP GRAVITY URINE 1.017; TURBIDITY URINE HAZY (CLEAR); UROBILINOGEN URINE NORMAL (NORMAL)
[2019-06-15 21:17] LABS: UR EPITHELIAL CELLS >10 /HPF (<10); URINE BACTERIA NEGATIVE /HPF; URINE RBC <10 /HPF (<10); URINE WBC <10 /HPF (<10)
[2019-06-15 21:22] LABS: URINE CASTS NONE SEEN; URINE CRYSTALS NONE SEEN; URINE SMALL ROUND CELLS NONE SEEN; URINE YEAST NONE SEEN
[2019-06-15] MEDS ORDERED: ROCEPHIN 1 GM in NS 50 ML IV ONE (21:23)
[2019-06-15 21:24] LABS: UR AMPHETAMINES QUAL NONE DETECTED (NONE DETECT); UR BARBITUATES QUAL NONE DETECTED (NONE DETECT); UR BENZODIAZEPIN QUAL NONE DETECTED (NONE DETECT); UR COCAINE QUAL NONE DETECTED (NONE DETECT); UR METHADONE QUAL NONE DETECTED (NONE DETECT); UR METHAMPHETAMINE QUAL NONE DETECTED (NONE DETECT); UR OPIATES QUAL NONE DETECTED (NONE DETECT); UR OXYCODONE QUAL PRESUMPTIVE POSITIVE (NONE DETECT)
[2019-06-15 21:25] LABS: UR CANNABINOIDS QUAL NONE DETECTED (NONE DETECT); UR PCP QUAL NONE DETECTED (NONE DETECT); UR PROPOXYPHENE QUAL NONE DETECTED (NONE DETECT); UR TCA QUAL NONE DETECTED (NONE DETECT)
[2019-06-15 21:26] LABS: INR 1.13; PROTIME 15.1 Seconds (11.0-16.0); PTT 26.4 Seconds (22.3-41.8)
[2019-06-15 21:37] LABS: ALBUMIN 4.3 g/dL (3.5-5.0); CALCIUM 9.2 mg/dL (8.8-10.2); CREATININE 1.2 mg/dL (0.5-0.9); TOTAL BILIRUBIN 0.4 mg/dL (0.20-1.00); TOTAL PROTEIN 7.4 g/dL (6.3-8.3)
--- NOTE | 2019-06-15 21:45 | Diag Imaging Result Doc PS360 ---
EXAM: CT HEAD W/O CONTRAST HISTORY: ALTERED MENTAL STATUS TECHNIQUE: CT head without contrast COMPARISON: None. FINDINGS: No parenchymal hemorrhage. No epidural or subdural hematoma. No subarachnoid hemorrhage. No mass identified on this noncontrasted exam. No hydrocephalus. No sinus opacification. IMPRESSION: No hemorrhage. Negative brain CT without contrast. This exam was performed using automated exposure control, adjustment of mA or kV according to patient size, and/or use of iterative reconstruction technique. Electronically signed by Johnathon Fuller 06/15/2019 9:42 PM
--- NOTE | 2019-06-15 21:50 | Diag Imaging Result Doc PS360 ---
EXAM: CHEST-1 VIEW HISTORY: overdose TECHNIQUE: Single view COMPARISON: 09/17/2016 FINDINGS: The lungs are well expanded. The heart is not enlarged. The vessels are not distended. There are increased left perihilar markings. No effusion identified. IMPRESSION: Left perihilar infiltrates. Follow-up and lateral recommended. Electronically signed by Johnathon Fuller 06/15/2019 9:48 PM
--- NOTE | 2019-06-15 23:13 | EKG Report ---
Test Performed on : 06/15/2019 10:41:31 PM Test Reason : AMS Blood Pressure : / mmHG Vent. Rate : 088 BPM Atrial Rate : 088 BPM P-R Int : 154 ms QRS Dur : 092 ms QT Int : 376 ms P-R-T Axes : 068 022 040 degrees QTc Int : 454 ms Normal sinus rhythm. with sinus arrhythmia. Low voltage QRS Possible Anterolateral infarct (cited on or before 13-SEP-2016) Abnormal ECG When compared with ECG of 13-SEP-2016 05:49, Nonspecific T wave abnormality now evident in Anterior leads Unconfirmed Result
[2019-06-15 23:22] LABS: CALCIUM 8.3 mg/dL (8.8-10.2); CREATININE 1.1 mg/dL (0.5-0.9); POTASSIUM 5.5 mmol/L (3.5-5.1)
[2019-06-16] MEDS ORDERED: APRESOLINE IV ONE (00:41)
[2019-06-16] MEDS ORDERED: DUONEB (A & A) INH ONE (00:52)
[2019-06-16] MEDS ORDERED: LASIX IV ONE (00:52)
[2019-06-16] MEDS ORDERED: NS 1,000 ML IV ONE (02:26)
[2019-06-16] MEDS ORDERED: ZOFRAN IV PRN ×2 (02:26→08:29)
[2019-06-16] MEDS ORDERED: DUONEB (A & A) INH PRN (08:29)
[2019-06-16] MEDS ORDERED: TYLENOL PO PRN (08:29)
[2019-06-16] MEDS: ROCEPHIN 1 GM in NS 50 ML IV SCH (11:17)
[2019-06-16] MEDS: CLINDAMYCIN 600 MG/NS 600 MG/50 ML IVPB IV SCH ×2 (11:21→17:33)
[2019-06-17] MEDS: CLINDAMYCIN 600 MG/NS 600 MG/50 ML IVPB IV SCH (01:16)
--- NOTE | 2019-06-17 02:05 | HISTORY AND PHYSICAL ---
CHIEF COMPLAINT: Overdose. HISTORY OF PRESENT ILLNESS: Patient is a 58-year-old female who presented to the emergency department via first response. Apparently neighbors called after Ms. Valle's son ran next door stating that he could not awaken her. Apparently she had taken extra oxycodone. Upon arrival, EMS noted O2 saturation 84%. After being given Narcan intranasally, the patient became combative. She was noncommunicative initially in the ER. Thankfully this improved and she was able to awaken and answer other questions prior to admission. ALLERGIES: Penicillin. MEDICATIONS: Ventolin, bumetanide, Anoro, oxycodone 30 t.i.d., and Lyrica. PAST MEDICAL HISTORY: Significant for hypertension, hyperlipidemia, COPD, chronic back pain. SURGICAL HISTORY: Tonsillectomy. REVIEW OF SYSTEMS: As noted above. Prior to this event, patient denies any issues. Currently notes that she is short of breath, coughing, congestion. Denies real fevers. Denies any production to her cough. Denies any focalized numbness or weakness. Denies dysuria, urinary frequency, constipation, melena, hematochezia. FAMILY HISTORY: Noncontributory. SOCIAL HISTORY: The patient has a longstanding history of smoking greater than a pack a day. Denies alcohol. Denies any illegal substances. PHYSICAL EXAMINATION: VITAL SIGNS: Temperature 97 degrees, pulse 106, respiratory 25, BP 149/114 initially, currently 108/78. GENERAL: Patient is awake. Currently, she is pleasant. She is in mild distress. Positive audible rhonchi. No wheezing. No crackles. Moves air well. CARDIOVASCULAR: Regular rate. No murmurs. CHEST: Positive rhonchi. ABDOMEN: Soft, obese, nondistended. EXTREMITIES: Moves all extremities. NEUROLOGIC: No changes. ASSESSMENT: 1. Hyperkalemia, improved. Initially 6.0, currently 5.5. 2. Elevated lactate at 5.0. 3. Acute hypoxic respiratory failure. 4. Sepsis secondary to pneumonia. 5. Pneumonia, likely secondary to aspiration. She does have a left parahilar infiltrate. 6. Chronic obstructive pulmonary disease with exacerbation. 7. Unintentional drug overdose. PLAN: We are going to continue patient in the hospital. Continue breathing treatments, oxygen. Place her on antibiotics for aspiration. We will follow her potassium. Further orders as needed. cc: Yan Weinstein MD
[2019-06-17 05:28] LABS: HEMATOCRIT 41.4 % (37.0-47.0); HEMOGLOBIN 12.4 g/dL (12.0-16.0); MCH 28.1 PG (27-31); MCV 93.9 FL (81-99); MPV 10.5 FL (7.4-10.4); RBC 4.41 XMIL (4.2-5.4); RDW 15.4 % (11.5-14.5); WBC 6.61 X1000 (4.8-10.8)
[2019-06-17 06:39] LABS: AGAP 10; ALBUMIN 3.3 g/dL (3.5-5.0); ALKALINE PHOSPHATASE 95 U/L (32-104); BUN 7 mg/dL (8-22); CALCIUM 8.5 mg/dL (8.8-10.2); CHLORIDE 99 mmol/L (98-107); COSMO 272; CREATININE 0.5 mg/dL (0.5-0.9); ESTIMATED GFR > 60; GLUCOSE 108 mg/dL (70-104); GOT 28 U/L (10-30); GPT 27 U/L (10-36); MAGNESIUM 1.6 mg/dL (1.5-2.7); POTASSIUM 3.8 mmol/L (3.5-5.1); SODIUM 137 mmol/L (136-145); TCO2 28 mmol/L (25-35); TOTAL PROTEIN 6.4 g/dL (6.3-8.3)
[2019-06-17] MEDS: ROCEPHIN 1 GM in NS 50 ML IV SCH (08:35)
[2019-06-17] MEDS: CLINDAMYCIN 600 MG/D5W 600 MG/50 ML IVPB IV SCH ×2 (12:06→18:20)
[2019-06-17] MEDS: NICODERM PATCH TD SCH (17:08)
[2019-06-18] MEDS: CLINDAMYCIN 600 MG/D5W 600 MG/50 ML IVPB IV SCH (04:17)
[2019-06-18 06:15] VITALS: BP 174/91
[2019-06-18] MEDS: NICODERM PATCH TD SCH (09:21)
[2019-06-18] MEDS: ROCEPHIN 1 GM in NS 50 ML IV SCH (09:21)
--- NOTE | 2019-06-18 09:32 | PROGRESS NOTE ---
DATE: 06/18/2019 SUBJECTIVE: Patient notes that she is feeling a lot better. Denies any cough or congestion. She is awake and alert. Denies fevers or chills. OBJECTIVE: Temperature 97 degrees, pulse 101, respiratory rate 18, BP 157/78. General: Patient is awake, pleasant. No distress. HEENT: Normocephalic. Neck: Supple. Cardiovascular: Regular rate. Chest: Decreased, positive rhonchi. No current wheezing. No crackles. Abdomen: Soft, obese, nondistended. Extremities: Moves all extremities. ASSESSMENT: 1. Hyperkalemia, resolved. Potassium 3.8. 2. Acute hypoxic respiratory failure secondary to overdose. 3. Sepsis secondary to pneumonia. 4. Pneumonia secondary to aspiration with left perihilar infiltrate. 5. Chronic obstructive pulmonary disease with exacerbation. 6. Intentional drug overdose. PLAN: We will continue patient in the hospital. Continue antibiotics, oxygen, breathing treatments, and we will follow. Hopefully, she can discharge home over the next day or two. cc: Yan Weinstein MD
--- NOTE | 2019-06-18 11:38 | DISCHARGE SUMMARY ---
ADMISSION DATE: 06/16/2019 DISCHARGE DATE: 06/18/2019 DISCHARGE DIAGNOSES: 1. Hyperkalemia, resolved. 2. Sepsis, resolved. 3. Pneumonia, improved secondary to aspiration. 4. Unintentional drug overdose. 5. Chronic obstructive pulmonary disease. 6. Obstructive sleep apnea. 7. Obesity. CONSULTATIONS: None. PROCEDURES: None. BRIEF HOSPITAL COURSE: The patient is a 58-year-old female who presented to the hospital after a drug overdose. Thankfully, this improved. She did start breathing and was much more awake and alert after treatment. However, it does appears though she aspirated. She was placed on antibiotics, required oxygen, although currently is off oxygen, saturating 95% on room air. She is doing much better. Lung exam is improved. She is asking to go home. DISPOSITION: Patient will be discharged home. Again discussed with her the perils of opiates use and abuse as well as even unintentional overtaking to lead to . She will be discharged on clindamycin and Omnicef for a total 7 day treatment. She will follow up outpatient with treatment facility of choice. TIME SPENT: Greater than 30 minutes was spent in total care. cc: Yan Weinstein MD
[2019-06-18] MEDS ORDERED: OXY IR PO SCH (15:00)
[2019-06-18] MEDS ORDERED: KLOR-CON PO SCH (15:00)
[2019-06-19] MEDS ORDERED: LYRICA PO SCH (09:00)
== END 2019-06-18 11:30 | disposition home or self-care (01) ==
LOC: P.MEDSURG 20:15 → P.ED 20:15
PROVIDERS: ATTEND Family Medicine